=== PATIENT | male | born 1945 | race Caucasian/White ===

== ENCOUNTER 2023-06-29 11:00 | Outpatient (CLI) | payer MEDICARE, SELFPAY ==
--- OUTSIDE RECORDS SUMMARY | 2023-06-29 11:03 | XMS_ITS | Clinical Summary ---
Author Name Unknown Organization [facility] Address [place], [place] [address] Care Team Providers Care Curtain Feller Blindstitch Name Role Phone Yimi Pascual MD Primary Care Provider Allergies Active Allergy Reactions Criticality Noted Date Comments Clarithromycin 02/24/2004 Sulfa (Sulfonamide Antibiotics) Sulfa Drugs Medications Medication Sig Dispensed Refills Start Date End Date Status HYDROCHLOROTHIAZIDE 25 MG TAB take 1 tablet (25mg) by oral route once daily 30 1 yr 03/26/2005 Active HYTRIN 5 MG CAP take 1 capsule (5mg) by oral route once daily at bedtime 30 5 04/26/2005 Active VIAGRA 25 MG TAB take 1 tablet (25mg) by oral route once daily as needed approximately 1 hour before sexual activity 6 2 04/26/2005 Active ALBUTEROL 90 MCG/ACTUATION AEROSOL INHALER 2 puffs by mouth every 4 to 6 hours as needed for wheezing 1 1 06/15/2005 Active SINGULAIR 10 MG TAB take 1 tablet (10mg) by oral route once daily in the evening 30 3 06/15/2005 Active ATROVENT 18 MCG/ACTUATION AEROSOL INHALER inhale 2 puffs (36mcg) by inhalation route 4 times per day 1 3 06/21/2005 Active ALBUTEROL SULFATE 0.083 % SOLN FOR INHALATION 1 prefill via nebulizer every 4 to 6 hours as needed 25 1 06/25/2005 Active Active Problems Problem Noted Date Diagnosed Date Obstructive chronic bronchitis with exacerbation 06/25/2005 SCREENING FOR MALIGNANCY NOS 08/30/2000 Immunizations Name Administration Dates Next Due Influenza, IIV3 (Age >=3 years) 12/18/2004 Td, Preservative Free (age >= 7 Years) 5 Social History Tobacco Use Types Packs/Day Years Used Date Smoking Tobacco: Former Cigarettes Q uit: 04/20/2005 Alcohol Use Standard Drinks/Week Comments Not Asked 0 (1 standard drink = 0.6 oz pur e alcohol) Sex and Gender Information Value Date Recorded Sex Assigned at Not on file Gender Identity Not on file Sexual Orientation Not on file Obstetrics History Last Filed Vital Signs Vital Sign Reading Time Taken Comments Blood Pressure 154/90 06/25/2005 10:30 AM CDT Pulse 72 06/25/2005 10:30 AM CDT Temperature 35.6 ??C (96.1 ??F) 09/02/2011 1 2:00 AM CDT Respiratory Rate 36 06/15/2005 9:45 AM CDT Oxygen Saturation 93% 06/18/2005 10: 00 AM CDT Inhaled Oxygen Concentration - - Weight 120.5 kg (265 lb 9.6 oz) 012 12:00 AM CDT Height 177.8 cm (5' 10) 09/02/2011 12: 00 AM CDT Body Mass Index 38.11 09/02/2011 12:00 AM CDT Plan of Treatment Health Maintenance Due Date Last Done Comments Tdap 08/24/1955 Depression screening for age 12+ 1956 BMI (ht and wt on same day) for age 18+ 1962 Hepatitis C screening for age 18-79 1962 Zoster (shingles) series for age 50+ (1 of 2) 1994 Pneumococcal series for age 65+ (1 of 1 - PCV) 2009 Tetanus booster 07/13/2014 07/13/2004 COVID-19 vaccine series (3 - 2022-24 season) 2022 05/02/2020, 04/04/2020 Influenza for age 65+ 10/30/2023 12/18/2004 Care Teams Curtain Feller Blindstitch Relationship Specialty Start Date End Date Yimi Pascual MD [address] [place], [place] [id number] [place] [address] PCP - General 06/25/05
== END 2023-06-29 11:01 | disposition home or self-care (01) ==
LOC: NFLDREF 11:01
PROVIDERS: PCP Internal Medicine; Visit Provider Internal Medicine
DX: J44.9 Chronic obstructive pulmonary disease, unspecified (principal); Z13.228 Encounter for screening for other metabolic disorders
CPT/HCPCS: 80053

== ENCOUNTER 2023-08-01 16:16 | Emergency (ER) | payer OTHER, SELFPAY ==
[2023-08-01 16:21] VITALS: BP 130/66; PULSE 60; RESP 18; TEMP 36.6; O2SAT 91; BMI 32.5
--- NOTE | 2023-08-01 16:35 | ED_ITS ---
HPI - Fall General Chief Complaint: Fall/Minor Trauma Stated Complaint: Head injury Time Seen by Provider: 08/01/23 16:19 History of Present Illness HPI Narrative: This 77-year-old male comes in because of an injury that occurred prior to arrival. He was in the bathroom and his daughter had placed a new rug on the floor that did not have any anti slip backing. The rug slipped out causing him to fall backwards into the bathtub. He states that he hit his left posterior ribs and also hit his head. He did not have loss of consciousness. He is not complaining of headache except for some intermittent pains on the left side. He does have some discomfort in the left posterior ribs but knows external sign of injury. Related Data Home Medications ?Medication ?Instructions ?Recorded ?Confirmed B-complex with vitamin C 1 tab PO QDAY 06/14/23 08/01/23 atorvastatin 40 mg tablet 40 mg PO QDAY 06/14/23 08/01/23 cholecalciferol (vitamin D3) 50 50 mcg PO QDAY 06/14/23 08/01/23 mcg (2,000 unit) capsule omeprazole 40 mg capsule,delayed 40 mg PO QDAY 06/14/23 08/01/23 release oxybutynin chloride 5 mg 5 mg PO QDAY 06/14/23 08/01/23 tablet,extended release 24 hr oxycodone-acetaminophen 5 mg-325 1 tab PO Q8H PRN 06/14/23 08/01/23 mg tablet vitamin E (dl, acetate) 180 mg 180 mg PO QDAY 06/14/23 08/01/23 (400 unit) capsule Previous Rx's ?Medication ?Instructions ?Recorded clotrimazole 1 % topical cream 1 applic topical BID PRN Yeast in 06/14/23 (Antifungal (clotrimazole)) folds #45 grams ipratropium 0.5 mg-albuterol 3 mg 3 ml inhalation QID #90 mL 06/29/23 (2.5 mg base)/3 mL nebulization soln metoprolol succinate 25 mg 25 mg PO QDAY #30 tabs 06/29/23 tablet,extended release 24 hr gabapentin 300 mg capsule 300 mg PO BID #60 caps 07/06/23 tamsulosin 0.4 mg capsule 0.4 mg PO BID #180 caps 07/08/23 hydrocodone 5 mg-acetaminophen 325 1 tab PO Q4-6H PRN pain #20 tabs 08/01/23 mg tablet Allergies Allergy/AdvReac Type Severity Reaction Status Date / Time respiratory syncytial virus Allergy Severe Anaphylaxis Verified 08/01/23 15:58 vaccine, antigen [From Arexvy (PF)] vaccine adjuvant system, Allergy Severe Anaphylaxis Verified 08/01/23 15:58 AS01E liposomal [From Arexvy (PF)] Sulfa (Sulfonamide Allergy Intermediate Unknown Verified 08/01/23 15:58 Antibiotics) clarithromycin Allergy Unknown Unknown Verified 08/01/23 15:58 Review of Systems Status of ROS: Reports: 10 or more systems reviewed and unremarkable except as noted in History and below Narrative: Constitutional: No fevers, no weight gain or loss. Eyes: No discharge. No vision changes. HENT: No congestion, no sore throat, no ear pain. Cardiovascular: No palpitations. Respiratory: No shortness of breath, no wheezes, no cough. Gastrointestinal: No abdominal pain, no vomiting, no diarrhea. Genitourinary: No dysuria, no hematuria. Musculoskeletal: Normal range of motion. Skin: No rashes, no pruritis. Neurological: No dizziness, weakness, sensory change, speech change. Endo/Heme/Allergies: No bruising or bleeding. No polydipsia. Pysch: no suicidality, no anxiety, no insomnia. All other systems reviewed and are negative. [facility] Medical History (Updated 08/01/23 @ 17:30 by Rudy Jose MD) Fall ?W19.XXXA - Unspecified fall, initial encounter (ICD-10) (HFpEF) heart failure with preserved ejection fraction ?I50.30 - Unspecified diastolic (congestive) heart failure (ICD-10) Thrombocytopenia ?D69.6 - Thrombocytopenia, unspecified (ICD-10) CKD (chronic kidney disease) ?N18.9 - Chronic kidney disease, unspecified (ICD-10) Tobacco use ?Z72.0 - Tobacco use (ICD-10) Impingement syndrome of left shoulder ?M75.42 - Impingement syndrome of left shoulder (ICD-10) PAF (paroxysmal atrial fibrillation) ?I48.0 - Paroxysmal atrial fibrillation (ICD-10) COPD (chronic obstructive pulmonary disease) ?J44.9 - Chronic obstructive pulmonary disease, unspecified (ICD-10) History of vitamin D deficiency ?Z86.39 - Personal history of other endocrine, nutritional and metabolic disease (ICD-10) Low back pain with bilateral sciatica ?M54.42 - Lumbago with sciatica, left side (ICD-10) ?M54.41 - Lumbago with sciatica, right side (ICD-10) History of upper gastrointestinal bleeding ?Z87.19 - Personal history of other diseases of the digestive system (ICD-10) Stenosis of right carotid artery ?I65.21 - Occlusion and stenosis of right carotid artery (ICD-10) Cardiac pacemaker in situ ?Z95.0 - Presence of cardiac pacemaker (ICD-10) Hyperlipidemia ?E78.5 - Hyperlipidemia, unspecified (ICD-10) Hypertension ?I10 - Essential (primary) hypertension (ICD-10) GERD (gastroesophageal reflux disease) ?K21.9 - Gastro-esophageal reflux disease without esophagitis (ICD-10) BPH (benign prostatic hyperplasia) ?N40.0 - Benign prostatic hyperplasia without lower urinary tract symptoms (ICD-10) Coronary artery disease ?I25.10 - Atherosclerotic heart disease of che[place]-na coronary artery without angina pectoris (ICD-10) Surgical History (Updated 06/28/23 @ 13:37 by Diane Steen) History of coronary artery bypass graft (2020) ?Z95.1 - Presence of aortocoronary bypass graft (ICD-10) History of permanent cardiac pacemaker placement ?Z95.0 - Presence of cardiac pacemaker (ICD-10) Social History (Updated 06/14/23 @ 15:10 by Jennifer Byrd~[facility], [facility]) What is your current living situation?: I presently have a place to live Problems where you live: no known problems In the past 12 months, utilities in danger of being shut off: no In past 12 months, lack of transportation kept you from medical appts, meetings, work, or getting things needed for daily living: no In the past 12 mos, have been you worried that your food would run out before you had money to buy more?: never true In the past 12 mos, the food you bought just didn't last and you didn't have money to buy more?: never true Smoking Status: Never smoker How often do you have a drink containing alcohol: never AUDIT-C Alcohol total score: 0 Non-prescribed substance use: denies use How often does anyone, including family, friends and others, physically hurt you : never How often does anyone, including family, friends and others, insult or talk down to you: never How often does anyone, including family, friends and others, threaten you with harm: never How often does anyone, including family, friends and others, scream or curse at you: never Little interest or pleasure in doing things: not at all Feeling down, depressed, or hopeless: not at all Exam Narrative: Exam Narrative: Constitutional: Well-developed, well-nourished, no acute distress. HEENT: Normocephalic, atraumatic. Neck: Normal range of motion. Nontender. Supple. Heart: Regular. No murmurs. Normal rate. Intact distal pulses. Lungs: Clear to auscultation. No chest discomfort. No wheezes, rhonchi, or rales. Abdomen: Normal bowel sounds. Nontender. No rebound tenderness. Genitalia: Deferred. Back: No midline tenderness. Normal range of motion. Diffuse tenderness in the left lateral posterior ribs. No external sign of injury. Extremities: Normal range of motion. No injury. Skin: Intact. No rash. Warm. No erythema or pallor. Neurologic: No altered sensation. No weakness. Alert and oriented. Psychiatric: No suicidality. No anxiety or depression. No insomnia. Nursing notes and vitals signs are reviewed. Const: Vital Signs, click to edit/add: Vital Signs - 24 hr 08/01/23 16:21 Temperature 97.8 F Pulse Rate [Left P ulse Oximeter] 60 Respiratory Rate 18 Blood Pressure [Ri ght Upper Arm] 130/66 Pulse Oximetry 91 Oxygen Delivery Me thod Room Air Course Vital Signs Vital signs: Initial Vital Signs Temperature 97.8 F 08/01/23 16:21 Temperature Source Temporal Artery Scan 08/01/23 16:21 Pulse Rate 60 08/01/23 16:21 Pulse Rhythm Regular 08/01/23 16:21 Pulse Strength 3+ Normal 08/01/23 16:21 Respiratory Rate 18 08/01/23 16:21 Blood Pressure 130/66 08/01/23 16:21 Blood Pressure Mean 87 08/01/23 16:21 Blood Pressure Position Sitting 08/01/23 16:21 Pulse Oximetry 91 06/03/24 16:21 Oxygen Delivery Method Room Air 08/01/23 16:21 Vital Signs Temperature 97.8 F 08/01/23 16:21 Pulse Rate 60 08/01/23 16:21 Respiratory Rate 18 08/01/23 16:21 Blood Pressure 130/66 08/01/23 16:21 Pulse Oximetry 91 08/01/23 16:21 Oxygen Delivery Method Room Air 08/01/23 16:21 Temperature 97.8 F 08/01/23 16:21 Pulse Rate 60 08/01/23 16:21 Respiratory Rate 18 08/01/23 16:21 Blood Pressure 130/66 08/01/23 16:21 Pulse Oximetry 91 08/01/23 16:21 Oxygen Delivery Method Room Air 08/01/23 16:21 MDM - Fall MDM Narrative Medical decision making narrative: This 77-year-old male fell in the bathroom hitting his left posterior ribs. He also hit his head. He arrives with normal vital signs and complains only of some discomfort in the left lateral posterior ribs. CT scan of the head and left rib detail images are obtained and these returned with no acute findings. This was reassuring to the patient. He is okay to be discharged home and understands that this pain will resolve over time and often it is several weeks before it completely goes away. He did receive a prescription for some tablets of [place]. Imaging Data CT scan - head: Radiologist's impression: No acute intracranial abnormalities. Chest x-ray: Radiologist's impression: No acute, displaced fracture or malalignment. Stable remote, healed left rib fractures. Interval reduction in size in the left-sided pleural effusion, now trace. The remainder of the examination is unchanged compared to prior exam on June 29, 2023. Discharge Plan Discharge Clinical Impression: Contusion of rib on left side Patient Disposition: Home, Self-Care Condition: Stable Additional Instructions: Take medication as needed and directed. Activity as tolerated. Follow up with MD return if worsening. Prescriptions: New hydrocodone-acetaminophen 5-325 mg tablet 1 tab PO Q4-6H PRN (Reason: pain) Qty: 20 0RF No Action gabapentin 300 mg capsule 300 mg PO BID Qty: 60 4RF vitamin E (dl, acetate) 180 mg (400 unit) capsule 180 mg PO QDAY B-complex with vitamin C Tablet 1 tab PO QDAY oxybutynin chloride 5 mg tablet extended release 24hr 5 mg PO QDAY cholecalciferol (vitamin D3) 50 mcg (2,000 unit) capsule 50 mcg PO QDAY oxycodone-acetaminophen 5-325 mg tablet 1 tab PO Q8H PRN atorvastatin 40 mg tablet 40 mg PO QDAY omeprazole 40 mg capsule,delayed release(DR/EC) 40 mg PO QDAY clotrimazole [Antifungal (clotrimazole)] 1 % cream 1 applic topical BID PRN (Reason: Yeast in folds) Qty: 45 3RF metoprolol succinate 25 mg tablet extended release 24 hr 25 mg PO QDAY Qty: 30 4RF ipratropium-albuterol 0.5 mg-3 mg(2.5 mg base)/3 mL solution for nebulization 3 ml inhalation QID Qty: 90 0RF tamsulosin 0.4 mg capsule 0.4 mg PO BID Qty: 180 3RF Follow Up/Referrals: Damion Wilcox MD [Primary Care Provider] - Stand Alone Forms: [facility] Info Instructions
--- NOTE | 2023-08-01 16:35 | CRLHL7_ITS ---
For Patients: As a result of the Century Cures Act, medical imaging exams and procedure reports are released immediately into your electronic medical record. You may view this report before your referring provider. If you have questions, please contact your health care provider. INDICATION: Fall. Head injury. TECHNIQUE: CT of the head without contrast. Coronal and sagittal reformats are included. COMPARISON: None. FINDINGS: No acute intracranial hemorrhage. No mass effect or midline shift. No hydrocephalus or extra-axial collections. Small chronic lacunar infarct left basal ganglia. No acute osseous abnormalities. Mastoid air cells and paranasal sinuses are clear. Normal soft tissues. IMPRESSION: IMPRESSION: 1. No acute intracranial abnormalities. Please note that all CT scans at this facility use dose modulation, iterative reconstruction, and/or weight-based dosing when appropriate to reduce radiation dose to as low as reasonably achievable. Dictated by Lc Gao MD @ 08/01/2023 5:07:36 PM (Electronically Signed)
--- NOTE | 2023-08-01 16:35 | CRLHL7_ITS ---
For Patients: As a result of the Cures Act, medical imaging exams and procedure reports are released immediately into your electronic medical record. You may view this report before your referring provider. If you have questions, please contact your health care provider. Indication: Fall Technique: Frontal view of the chest and frontal and oblique views of the left ribs Comparison: Chest radiograph on June 29, 2023 Findings/impression : No acute, displaced fracture or malalignment. Stable remote, healed left rib fractures. Interval reduction in size in the left-sided pleural effusion, now trace. The remainder of the examination is unchanged compared to prior exam on June 29, 2023. Dictated by Jass rAdon MD @ 08/01/2023 5:22:15 PM (Electronically Signed)
--- OUTSIDE RECORDS SUMMARY | 2023-08-01 16:48 | XMS_ITS | Clinical Summary ---
Author Organization Formerly [facility] Address [address] [place] [address] Care Team Providers Care Nutrition Therapist Name Role Phone Fercho Serrato Primary Care Provider [phone] Source Comments You are receiving this document as you are listed as the primary care provider,follow-up provider, or the patient has been referred to you for consultation.This is in compliance with the Medicare and[facility] EHR Incentive Program,which states Providers who transition their patient to another setting of careor provider of care or refers their patient to another provider of care shouldprovide summary care record for each transition of care or referral. [employer] Allergies Active Allergy Reactions Criticality Noted Date Comments Rsvpref3 Vac Recomb Adjuvanted Anaphylaxis High 03/01/2023 Clarithromycin 02/24/2004 Sulfa Antibiotics HUT Comment: Sulfa Drugs Medications Medication Sig Dispensed Refills Start Date End Date Status B ComplexIndications :Elevated ferritin level,Folic acid deficiency (HRC),Vitamin B12 deficiency (HRC),Anemia, unspecified type Take 1 Capsule by mouth daily. 90 Capsule 3 06/26/2021 Active albuterol 2.5 mg/3 mL, 0.083%, (PROVENTIL) nebulizer solutionIndication s:Reactive airway disease with acute exacerbation, unspecified asthma severity, unspecified whether persistent (HRC) 1 Each (2.5 mg) by Nebulization route every 6 hours as needed for Wheezing. 180 mL 1 03/09/2022 Active azelastine (ASTELIN) 0.1 % nasal solutionIndication s:Allergic rhinitis, unspecified seasonality, unspecified trigger Place 1 Recluse into both nostrils two times a day. 30 mL 11 06/29/2022 Active cholecalciferol (D3 SUPER STRENGTH) 50 MCG (2000 UT) capsuleIndications :Vitamin D deficiency (HRC) Take 2 Capsules (4,000 Units) by mouth daily. 180 Capsule 3 06/30/2022 Active olopatadine (PATADAY) 0.2 % eye drop solution Place 1 Drop into both eyes daily. 2.5 mL 3 07/02/2022 Active atorvastatin (LIPITOR) 40 MG tabletIndications: Mild carotid artery disease (HRC),S/P coronary artery bypass graft x 5 TAKE 1 TABLET (40 MG) BY MOUTH DAILY. 90 Tablet 3 09/10/2022 Active gabapentin (NEURONTIN) 300 MG capsuleIndications :Idiopathic peripheral neuropathy Take 1 Capsule (300 mg) by mouth two times a day. 180 Capsule 1 10/15/2022 4 Active oxybutynin (DITROPAN XL) 5 MG 24 hour release tabletIndications: OAB (overactive bladder) Take 1 Tablet (5 mg) by mouth daily. 90 Tablet 1 10/15/2022 Active omeprazole (PRILOSEC) 40 MG capsuleIndications :Gastroesophageal reflux disease with esophagitis without hemorrhage Take 1 Capsule (40 mg) by mouth daily. 90 Capsule 1 10/15/2022 4 Active tiotropium-olodate rol (STIOLTO RESPIMAT) 2.5-2.5 MCG/ACT inhalerIndications :Moderate persistent reactive airway disease with acute exacerbation ([facility]) Inhale 2 Puffs daily. 2 Each 3 10/15/2022 4 Active dutasteride (AVODART) 0.5 MG capsuleIndications :Benign prostatic hyperplasia with weak urinary stream TAKE 1 CAPSULE (0.5 MG) BY MOUTH DAILY. 90 Capsule 3 12/27/2022 Active nitroglycerin (NITROSTAT) 0.4 MG sublingual tabletIndications: Chest discomfort,S/P coronary artery bypass graft x [address] Place 1 Tablet (0.4 mg) under tongue every 5 minutes as needed for Chest Pain. 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 180 Capsule 1 01/13/2023 Active metoprolol succinate (TOPROL XL) 25 MG 24 hour release tabletIndications: PAF (paroxysmal atrial fibrillation) (HRC),Essential hypertension (HRC) Take 1 Tablet (25 mg) by mouth daily. 90 Tablet 3 03/01/2023 Active clotrimazole (LOTRIMIN) 1 % creamIndications:C andidal intertrigo Apply 1 g topically two times daily as needed (yeast groinfolds). 60 g 3 03/01/2023 Active oxyCODONE-acetamin ophen (PERCOCET) 5-325 MG tabletIndications: Chronic bilateral low back pain with left-sided sciatica (HRC),Right-sided low back pain with right-sided sciatica, unspecified chronicity (HRC),History of rib fracture TAKE 1 TABLET BY MOUTH EVERY 24 HOURS NEEDED FOR PAIN. 30 Tablet 04/29/2023 Active E-400 180 MG (400 UNIT) CAPSIndications:No cturnal leg cramps TAKE 1 CAPSULE (400 UNITS) BY MOUTH DAILY. 90 Capsule 3 05/13/2023 Active Active Problems Problem Noted Date Diagnosed Date History of chronic respiratory failure 3 History of RSV infection 01/13/2023 Unstable angina 01/08/2023 care home (current) use of systemic steroids 12/2022 care home current use of inhaled steroid 023 Folic acid deficiency 01/08/2023 Paresthesia 07/17/2022 Rectal bleeding 07/17/2022 Alternating constipation and diarrhea 07/17/2022 Acute on chronic combined sy stolic and diastolic CHF (congestive heart failure) 07/04/2022 Supplemental oxygen dependent 06/20/2022 Chronic bilateral low back pain with left-sided sciatica 03/10/2022 Right-sided low back pain with right-sided sciat ica 03/10/2022 Obstructive lung disease 03/10/2022 Carotid artery stenosis, unilateral, right 03/10 Stage 3a chronic kidney disease 03/09/2022 Reactive airway disease 03/09/2022 History of COVID-19 03/09/2022 Weakness of right leg 03/09/2022 Cutaneous candidiasis 03/09/2022 Dyspnea 03/09/2022 Leg cramps 03/09/2022 Controlled substance agreement signed 03/09/2022 Overview: Signed 03/01/2023 Signed 03/09/2022 Acute on chronic respiratory failure with hypoxi a 12/09/2021 Pneumonia due to COVID-19 virus 12/07/2021 Temporal pain 06/18/2021 Dyslipidemia 12/21/2020 Gastroesophageal reflux disease 12/21/2020 Vitamin D deficiency 12/21/2020 Contusion of right hip 12/21/2020 Shoulder impingement syndrome, left 12/21/2020 Status cardiac pacemaker 08/09/2020 Overview: Tachy-benito Syndrome PAF (paroxysmal atrial fibrillation) 08/09/2020 Overview: Not anticoagulated due to high risk for bleeding, hx of UGI bleed Carotid artery disease 08/09/2020 Overview: 11/27/19 Carotid US 16 to 49% stenosis of the right internal carotid artery, 16 to 49% stenosis of the left internal carotid artery Family history of CABG 08/09/2020 Overview: 12/18/19 SADLER-LAD,??SVG to M2 - M3,??SVG to proximal PDa (RCA),??SVG to D2) Benign prostatic hyperplasia with weak urinary s tream 08/09/2020 Obesity, Class I, BMI 30-34.9 08/09/2020 OAB (overactive bladder) 08/09/2020 Anemia 08/09/2020 Thrombocytopenia 08/09/2020 Essential hypertension 08/09/2020 S/P coronary artery bypass graft x 5 08/09/2020 Class 1 obesity due to exces s calories with serious comorbidity and body mass index (BMI) of 34.0 to 34.9 in adult 11/29/2019 Obstructive chronic bronchitis with exacerbation 06/25/2005 Resolved Problems Problem Noted Date Diagnosed Date Resolved Date Hypoxia 12/07/2021 12/17/2021 Right upper quadrant abdominal pain 06/18/2021 01/13/2023 Chronic heart failure with p reserved ejection fraction 08/09/2020 10/14/2022 Hypoproteinemia 08/09/2020 06/18/2021 Chest heaviness 08/09/2020 01/13/2023 Encounter for screening for malignant neoplasm 08/30/2000 12/17/2021 Overview: SCREENING FOR MALIGNANCY NOS Encounters Date Type Department Care Team Description 07/01/2023 9:40 AM CDT Office Visit [facility] [address] [place] [phone] Darryl Lizama, DPM Atherosclerosis of artery of both lower extremities (HRC) (Primary Dx); Onychomycosis 06/06/2023 9:20 AM CDT [facility] [address] [facility] [place], [place] [id number] Second degree Mobitz II AV block (Primary Dx); Status cardiac pacemaker; PAF (paroxysmal atrial fibrillation) (HRC) 05/24/2023 Telephone [facility] [address] [facility] [place] [phone] Fercho Serrato, DO QUESTIONS, GENERAL (FORM NEEDED) 05/10/2023 Refill [facility] Internal Medicine [facility] [address] [place] [phone] Fercho Serrato, Refill (E-400 180 MG (400 UNIT) CAPS [Pharmacy Med Name: E-400 400UNIT]) from Last 3 Months Immunizations Name Administration Dates Next Due Flu Vac (3+ yrs) 11/28/2005,12/18/2004 Flu Vac Preserv Free (3+yrs) 12/25/2010 Influenza (Flucelvax) 12/03/2020 Influenza IIV4 (Quadrivalent ) 0.5mL (12254) 12/17/2019,04/05/2018 Influenza IIV4 (Quadrivalent ) Fluad, 65+ Yrs 12/06/2022,12/04/2021 Moderna 12+ 12/06/2022 Moderna Bivalent 12+ 12/04/2021 Moderna Monovalent 12+ 07/06/2021,2020,05/02/2020,2020 Moderna Monovalent 6-11 12/06/2022 PCV13 (Prevnar) 04/05/2018 PPSV23 (Pneumovax) 10/13/2013,11/28/2005 RSV Arexvy 12/07/2022 Td (7+ yrs) 07/13/2004 Td, Preservative Free 07/13/2004 Tdap 09/23/2014 Zoster RZV (Shingrix) 08/20/2022,01/30/2021,07/2020 Social History Tobacco Use Types Packs/Day Years Used Date Smoking Tobacco: Former Cigarettes Passive Smoke Exposure: Past Smokeless Tobacco: Never Alcohol Use Standard Drinks/Week Comments Not Currently 0 (1 standard drink = 0.6 oz pur e alcohol) Sex and Gender Information Value Date Recorded Sex Assigned at Not on file Gender Identity Not on file Sexual Orientation Not on file Last Filed Vital Signs Vital Sign Reading Time Taken Comments Blood Pressure 120/56 03/01/2023 10:07 AM STATISTICS INTERN Pulse 71 07/01/2023 9:25 AM CDT Temperature 37.3 ??C (99.1 ??F) 03/01/2023 9 :29 AM STATISTICS INTERN Respiratory Rate 21 12/13/2022 7:36 PM CDT Oxygen Saturation 92% 07/01/2023 9:2 5 AM CDT Inhaled Oxygen Concentration - - Weight 102.1 kg (225 lb) 07/01/2023 9:2 5 AM CDT Height 178 cm (5' 10.08) 12/30/2022 8: 44 AM CDT With Shoes, Pt decline to remove Body Mass Index 32.21 12/30/2022 8:44 AM CDT Plan of Treatment Upcoming Encounters Date Type Department Care Team (Late st Contact Info) Description 08/31/2023 10:[address] [facility] [address] [place] [phone] Health Maintenance Due Date Last Done Comments Medicare Annual Wellness Visit 02/28/2023 12/30/2022, 06/08/2021 (Completed) COVID-19 Vaccine ( season) 2023 12/06/2022, 12/06/2022, 12/04/2021, Additional history exists DTaP/Tdap/Td (2 - Tdap) 09/23/2024 09/24/19 15, 07/13/2004, 07/13/2004 Pneumococcal 65+ Yrs Completed 04/05/2018, 10/13/2013, 11/28/2005 Hep C Screening (Preventive Services) Completed 09/11/2020 Zoster/Shingles Completed 08/20/2022, 04/2020, 12/03/2020 Influenza Completed 12/06/2022, 08/2021, 12/03/2020, Additional history exists Cholesterol Discontinued 12/30/2022, 02/28, 06/08/2021, Additional history exists Lung Cancer Screening Discontinued 04/11/2023, 023 HepA Aged Out No longer eligi ble based on patient's age to complete this topic HepB Aged Out No longer eligi ble based on patient's age to complete this topic Hib Aged Out No longer eligi ble based on patient's age to complete this topic IPV (Polio) Aged Out No longer eligi ble based on patient's age to complete this topic MCV4 Aged Out No longer eligi ble based on patient's age to complete this topic Medical Devices Implanted Type Area Nuclear Test Technician Device Identifier Shelf Expiration Date Model / Serial / Lot Pacemaker Cardiac Bypass X5 Procedures Procedure Name Priority Date/Time Associated Diagnosis Comments PACEMAKER EVALUATION Routine 06/06/2023 5:11 AM CDT Second degree Mobitz II AV block Status cardiac pacemaker PAF (paroxysmal atrial fibrillation) (HRC) CT CHEST WO IV CONT LUNG SCREENING Routine 04/11/2023 1:42 PM STATISTICS INTERN Tobacco use (HRC) Nicotine dependence with nicotine-induced disorder, unspecified nicotine product type (HRC) Smoking greater than 40 pack years (HRC) LIPID PANEL & DIRECT LDL (IF NEEDED) Routine 12/30/2022 8:08 AM CDT Dyslipidemia (HRC) HEPATITIS C ANTIBODY, WITH REFLEX Waiting 09/11/2020 12:26 PM CDT Need for hepatitis C screening test from Last 3 Months or Most Recently Relevant to Health Maintenance Results * Pacemaker Evaluation (06/06/2023 5:11 AM CDT) 06/06/2023 5:11 AM CDT Narrative PACEART - 06/06/2023 5:11 AM CDT Normal dual chamber pacemaker function. This is a Latitude transmission. The device was interrogated to assess data and settings. No atrial high rate episodes noted. Two VT epiosdes detected with durations of 2 and 4 seconds (6 and 12 beats) per EGMs with rates of 187 and 194bpm. RV paced 98%. Battery voltage and lead impedances WNL. RTC in 3 months. Please contact if any questions. dw Christiano Perkins MD PN ELECTROPHYSIOLOGY ORDERABLE PACEART * CT Chest WO IV Cont Lung Screening (04/11/2023 1:42 PM STATISTICS INTERN) Anatomical Region Laterality Modality Chest, Lung Computed Tomogra phy 04/11/2023 1:25 PM STATISTICS INTERN Impressions 04/11/2023 2:11 PM STATISTICS INTERN COMPARISON: 04/09/2022 TECHNIQUE: Images through the chest were obtained without contrast using a low dose lung screening technique. FINDINGS: CHEST WALL AND LOWER NECK: Left chest wall cardiac pacemaker, leads terminating in the right atrium and ventricle. HEART AND VASCULATURE: Normal heart size. No pericardial effusion. No thoracic aortic aneurysm. Moderate coronary artery calcifications. MEDIASTINUM: Unremarkable esophagus. Scattered prominent mediastinal lymph nodes, similar to prior. LUNGS AND PLEURAL SPACE: Patent central airways. No focal airspace consolidation. Mild bronchial wall thickening. Small left pleural effusion. No pneumothorax. Mild diffuse subpleural reticular opacities. 3 mm pulmonary nodule within the right upper lobe (series 3 image 65), stable. 2 mm nodule within the right upper lobe (series 3 image 46), not clearly seen on prior exam. 2 mm nodule within the left upper lobe (series 3 image 49), stable. UPPER ABDOMEN: Hepatic steatosis Focal cortical thickening of the left posterolateral seventh rib (series 2 image 39), likely present on prior exam but more conspicuous on present study. IMPRESSION: 1. Scattered tiny pulmonary nodules. Recommend continued surveillance. 2. Small left pleural effusion 3. Focal cortical thickening of the posterolateral seventh rib, likely chronic fracture. In retrospect, this was likely present on prior exam but more conspicuous on present exam. 4. Hepatic steatosis ACR Lung-RADS Category ACR Lung-RADS Category 2: Benign. Continue annual screening with low-dose chest CT in 12 months (CT Chest WO IV Cont Lung Screening). ACR Lung-RADS Category S: Significant or potentially clinically significant findings (non lung cancer). Clinical follow-up is recommended Reyna Wharton MD RAD CT * (ABNORMAL) Lipid Panel & Direct LDL (if Needed) (12/30/2022 8:08 AM CDT) Cholesterol 126 0 - 199 mg/dL 12/30/2022 8:40 AM [facility] Triglyceride 115 <=149 mg/dL 12/30/2022 8:40 AM [facility] HDL Cholesterol 32(L) >=40 mg/dL 3 8:40 AM [facility] LDL, Calculated 71 <130 mg/dL 3 8:40 AM [facility] Non HDL Chol, Calculated 94 <=159 mg/dL 12/30/2022 8:40 AM [facility] Cholesterol/HDL Ratio 3.9 <=5.0 12/30/2022 8:40 AM [facility] Hours Fasting 10.0 8 - 12 Hours 12/30/2022 8:40 AM [facility] Blood Venipuncture / Unknown 12/30/2022 8:08 AM CDT 12/30/2022 8:13 AM CDT Fercho Serrato DO LAB_1 [facility] [address] [facility] [address] [place] [address] * Hepatitis C Antibody, with Reflex (09/11/2020 12:26 PM CDT) Hepatitis C Antibody Negative (Non Reactive) Negative (Non Reactive) 09/11/2020 4:26 PM CDT [facility] Comment:Antibodies to HCV no t detected. Does not exclude the possiblity of exposure to HCV. Blood Venipuncture / Unknown 09/11/2020 12:26 PM CDT 09/11/2020 12:36 PM CDT Fercho Serrato DO LAB_1 [facility] [address] [place] [address], [facility] from Last 3 Months or Most Recently Relevant to Health Maintenance Advance Directives * Full Code (Latest Code Status on File) Date Activated Date Inactivated Comments 10/06/2022 1:30 PM 10/06/2022 4:28 PM * Do Not Attempt Resuscitation if Pulseless and Apneic, Do Not Intubate for Respiratory Deterioration Date Activated Date Inactivated Comments 07/04/2022 11:26 AM 07/06/2022 3:22 PM Question Answer Comments See below for Life Sustainin g Treatment Orders IF pulse and breathing are present: See below Intubation for respiratory deterioration? No BiPAP for respiratory deterioration? Unaddressed /Yes Vasopressors for hypotension? Unaddressed/Yes Cardioversion for unstable rhythm? Unaddressed/Y es * Do Not Attempt Resuscitation if Pulseless and Apneic, Do Not Intubate for Respiratory Deterioration Date Activated Date Inactivated Comments 12/07/2021 1:36 AM 12/10/2021 3:56 PM Question Answer Comments See below for Life Sustainin g Treatment Orders IF pulse and breathing are present: See below Intubation for respiratory deterioration? No BiPAP for respiratory deterioration? Unaddressed /Yes Vasopressors for hypotension? Unaddressed/Yes Cardioversion for unstable rhythm? Unaddressed/Y es * Full Code Date Activated Date Inactivated Comments 12/07/2021 1:17 AM 12/07/2021 1:36 AM * Full Code Date Activated Date Inactivated Comments 08/26/2021 1:46 PM 08/26/2021 5:07 PM Care Teams Nutrition Therapist Relationship Specialty Start Date End Date Fercho Serrato DO [address] [place] [address] PCP - General Internal Medicine 08/01/20
--- OUTSIDE RECORDS SUMMARY | 2023-08-01 16:48 | XMS_ITS | Clinical Summary ---
Author Organization [employer] [facility] Address [place], [place] [address] Care Team Providers Care Telecommunication Tower Technician Name Role Phone Yimi Pascual MD Primary [...] Tetanus booster 07/13/2014 07/13/2004 COVID-19 vaccine series (2022-24 season) 2022 05/02/2020, 04/04/2020 Influenza for age 65+ 10/30/2023 12/18/2004 Care Teams Telecommunication Tower Technician Relationship Specialty Start Date End Date Yimi Pascual MD [address] [place] [address] [place] [id number] PCP - General 06/25/05
--- OUTSIDE RECORDS SUMMARY | 2023-08-01 16:48 | XMS_ITS | Encounter Summary ---
Author Organization [employer] Address [address] [place] [address] Care Team Providers Care Vice President For Instruction Name Role Phone Fercho Serrato DO Primary Care Provider + [phone] Reason for Visit * Reason Comments QUESTIONS, GENERAL FORM NEEDED Encounter Details Date Type Department Care Team (Late st Contact Info) Description 05/24/2023 Telephone [facility] Internal Medicine Clinic [address] [place] [phone] Fercho Serrato DO [address] [place] [address] QUESTIONS, GENERAL (FORM NEEDED) Social History Tobacco Use Types Packs/Day Years Used Date Smoking Tobacco: Former Cigarettes Passive Smoke Exposure: Past Smokeless Tobacco: Never Alcohol Use Standard Drinks/Week Comments Not Currently 0 (1 standard drink = 0.6 oz pur e alcohol) Sex and Gender Information Value Date Recorded Sex Assigned at Not on file Gender Identity Not on file Sexual Orientation Not on file documented as of this encounter Nursing Notes * Rosalinda Dasilva LPN - 05/24/2023 4:53 PM CDT Called patient. Per patient, mailed form from last year for animal assistance form to patient and to: Rasheed Conde, [address] [place] [address]. Rosalinda Alcantara LPN, 4:54 PM 05/24/2023 * Sanjana Muller - 05/24/2023 11:39 AM CDT Forms & Letters What form/letter are you requesting? Emotional Support Animal COPY OF ASH FORM SENT TO [facility] FOR DOG, CALL PT BACK [phone] documented in this encounter Plan of Treatment Upcoming Encounters Date Type Department Care Team (Late st Contact Info) Description 08/31/2023 10:00 AM CDT Appointment [facility] Electrophysiology Clinic [address] [place] [phone] documented as of this encounter Visit Diagnoses Not on filedocumented in this encounter Care Teams Vice President For Instruction Relationship Specialty Start Date End Date Fercho Serrato DO [address] [place] [address] PCP - General Internal Medicine 08/01/20 documented as of this encounter
--- OUTSIDE RECORDS SUMMARY | 2023-08-01 16:48 | XMS_ITS | Encounter Summary ---
Author Organization [facility] Address [address], [place] [address] Care Team Providers Care Mine Shifter Name Role Phone Fercho Guido DO Primary Care Provider + [phone] Reason for Visit * Reason Comments Refill E-400 180 MG (400 UN IT) CAPS [Pharmacy Med Name: E-400 400UNIT] Encounter Details Date Type Department Care Team (Late st Contact Info) Description 05/10/2023 Refill [facility] Internal Medicine Clinic [address] [place] [phone] Fercho Guido DO [address] [place] [address] Refill (E-400 180 MG (400 UNIT) CAPS [Pharmacy Med Name: E-400 400UNIT]) Social History Tobacco Use Types Packs/Day Years [...] as of this encounter Nursing Notes * Javad Garcia RN - 05/13/2023 8:41 PM CDT Renewed medication per medication refill protocol. Requested Prescriptions Pending Prescriptions Disp Refills Vitamin E (E-400) 180 MG (400 UNIT) CAPS [Pharmacy Med Name: E-400 400UNIT] 90 Capsule 3 Sig: TAKE 1 CAPSULE (400 UNITS) BY MOUTH DAILY. * Jazmin Bueno Xrwcomm - 05/10/2023 9:18 AM CDT E-400 180 MG (400 UNIT) CAPS [Pharmacy Med Name: E-400 400UNIT] Medication started: 03/23/2022 Last ordered by FERCHO GUIDO (224 days ago) QTY: 90, Refills: 1, Sig: take 1 capsule (400 units) by mouth daily. (unchanged) -> Refill x 12 months (until due for an office visit) -> Calculate the quantity and number of refills manually. Last qualifying visit: 03/01/2023 (with FERCHO GUIDO) Next scheduled visit: 05/31/2023 (with FERCHO GUIDO) [facility] Embedded Refills, Reference: [id number], 05/10/2023 9:18:12 AM CDT, Domenic: TINO [facility] - Primary Care [[id number]] ([id number]) documented in this encounter Plan of Treatment Upcoming Encounters Date Type Department Care Team (Late st Contact Info) Description 08/31/2023 10:00 AM CDT Appointment [facility] Electrophysiology Clinic [address] [place] [phone] documented as of this encounter Visit Diagnoses Diagnosis Nocturnal leg cramps Sleep related leg cramps documented in this encounter Care Teams Mine Shifter Relationship Specialty Start Date End Date Fercho Guido DO [address] [place] [address] PCP - General Internal Medicine 08/01/20 documented as of this encounter
--- OUTSIDE RECORDS SUMMARY | 2023-08-01 16:48 | XMS_ITS | Encounter Summary ---
Author Organization [facility] Address [address] [address] Care Team Providers Care Horse Trader Name Role Phone Fercho Serrato Primary Care Provider + Encounter Details Date Type Department Care Team (Late Contact Info) Description 12/13/2019 Lab Requisition [facility] [address] [place], [place] [id number] Clinician, Not Found, [place] [address] Encounter for surgical aftercare following surgery on the circulatory system Social History Tobacco Use Types Packs/Day Years Used Date Smoking Tobacco: Former Cigarettes Q uit: 04/20/2005 Alcohol Use Standard Drinks/Week Comments Not Asked 0 (1 standard drink = 0.6 oz pur e alcohol) Sex and Gender Information Value Date Recorded Sex Assigned at Not on file Gender Identity Not on file Sexual Orientation Not on file documented as of this encounter Plan of Treatment Upcoming Encounters Date Type Department Care Team (Late Contact Info) Description 08/31/2023 10:00 AM CDT Appointment [facility] [address] [place] [address] documented as of this encounter Procedures Procedure Name Priority Date/Time Associated Diagnosis Comments CBC AND DIFFERENTIAL PANEL Routine 12/14/2019 7:10 AM CDT Encounter for surgical aftercare following surgery on the circulatory system COMPLETE BLOOD COUNT-W/DIFF Routine 12/14/2019 7:10 AM CDT Encounter for surgical aftercare following surgery on the circulatory system COMPREHENSIVE METABOLIC PANEL Routine 12/14/2019 7:10 AM CDT Encounter for surgical aftercare following surgery on the circulatory system documented in this encounter Results * (ABNORMAL) Complete Blood Count-W/Diff (12/14/2019 7:10 AM CDT) WBC 8.3 3.5 - 10.5 x10(9)/L 12/14/2019 12:51 PM CDT [facility] RBC 2.85(L) 4.32 - 5.72 x10(12)/L 12/14/2019 12:51 PM CDT [facility] Hemoglobin 9.3(L) 13.5 - 17.5 g/dL 12/14/2019 12:51 PM CDT [facility] HCT 30.3(L) 38.8 - 50.0 % 12/14/2019 12:51 PM CDT [facility] MCV 106.3(H) 80.0 - 100.0 fL 12/14/2019 12:51 PM CDT [facility] MCH 32.6 27.6 - 33.3 pg 12/14/2019 12:51 PM CDT [facility] MCHC 30.7(L) 31.5 - 35.2 g/dL 12/14/2019 12:51 PM CDT [facility] RDW 14.5 11.9 - 15.5 % 12/14/2019 12:51 PM CDT [facility] Platelets 358 150 - 450 x10(9)/L 12/14/2019 12:51 PM CDT [facility] Automated NRBC 0 <=0 /100 WBC 12/14/2019 12:51 PM CDT [facility] Neutrophil Absolute 6.1 1.7 - 7.0 10(9)/L 12/14/2019 12:51 PM CDT [facility] Lymphocyte Absolute 1.3 1.0 - 4.8 10(9)/L 12/14/2019 12:51 PM CDT [facility] Monocyte Absolute 0.7 0.2 - 0.9 10(9)/L 12/14/2019 12:51 PM CDT [facility] Eosinophil Absolute 0.1 0.0 - 0.5 10(9)/L 12/14/2019 12:51 PM CDT [facility] Basophil Absolute 0.1 0.0 - 0.3 10(9)/L 12/14/2019 12:51 PM CDT [facility] Immature Granulocyte % 0.5 0.0 - 0.5 % 12/14/2019 12:51 PM CDT [facility] Blood Venipuncture / Unknown 12/14/2019 7:10 AM CDT 12/14/2019 12:04 PM CDT Not Found Clinician LAB_1 [facility] [address] [place] [address], [facility] * (ABNORMAL) Comp Metabolic Panel (12/14/2019 7:10 AM CDT) Sodium 136 136 - 145 mmol/L 12/14/2019 1:15 PM CDT [facility] Potassium 4.2 3.5 - 5.1 mmol/L 12/14/2019 1:15 PM CDT [facility] Chloride 101 98 - 109 mmol/L 12/14/2019 1:15 PM CDT [facility] CO2 27 20 - 29 mmol/L 12/14/2019 1:15 PM CDT [facility] Anion Gap 8 7 - 16 mmol/L 12/14/2019 1:15 PM CDT [facility] Calcium 8.8 8.4 - 10.4 mg/dL 12/14/2019 1:15 PM CDT [facility] BUN 16 7 - 26 mg/dL 12/14/2019 1:15 PM CDT [facility] Creatinine 1.05 0.73 - 1.18 mg/dL 12/14/2019 1:15 PM CDT [facility] GFR, Estimated >60 >60 mL/min/1.7 3m2 12/14/2019 1:15 PM CDT [facility] Alkaline Phosphatase 123 40 - 150 U/L 12/14/2019 1:15 PM CDT [facility] AST (SGOT) 23 10 - 40 U/L 12/14/2019 1:15 PM CDT [facility] ALT (SGPT) 29 0 - 55 U/L 12/14/2019 1:15 PM CDT [facility] Bilirubin, Total 0.5 0.2 - 1.2 mg/dL 12/14/2019 1:15 PM CDT [facility] Protein, Total 6.1(L) 6.4 - 8.3 g/dL 12/14/2019 1:15 PM CDT [facility] Albumin 3.1(L) 3.5 - 5.0 g/dL 12/14/2019 1:15 PM CDT [facility] Glucose 95 70 - 100 mg/dL 12/14/2019 1:15 PM CDT [facility] Comment:The given reference range is for the fasting state. Non-fasting reference range for glucose is 70 - 180 mg/dL. Hours Fasting Unknown 12/14/2019 1:15 PM CDT [facility] Blood Venipuncture / Unknown 12/14/2019 7:10 AM CDT 12/14/2019 12:02 PM CDT Not Found Clinician LAB_1 Performing Organization Address City/State/[facility] Co de Phone Number [facility] [address] documented in this encounter Visit Diagnoses Diagnosis Encounter for surgical aftercare following surgery on the circulatory system documented in this encounter Additional Health Concerns Infection Onset Date Last Indicated Resolved Time R/O COVID19 12/06/2021 12/06/2021 12/06/2021 11:3 9 PM CDT COVID19 12/06/2021 12/06/2021 12/17/2021 3:17 AM CDT R/O COVID19 07/04/2022 07/04/2022 07/04/2022 10:3 6 AM CDT R/O COVID19 12/13/2022 12/13/2022 12/13/2022 7:02 PM CDT documented as of this encounter Care Teams Horse Trader Relationship Specialty Start Date End Date Fercho Serrato DO [address] [place] [address] PCP - General Internal Medicine 08/01/20 documented as of this encounter
--- OUTSIDE RECORDS SUMMARY | 2023-08-01 16:48 | XMS_ITS | Encounter Summary ---
Author Organization [facility] Address [address], [place] [address] Care Team Providers Care It Coordinator Name Role Phone Fercho Guido DO Primary Care Provider [phone] Reason for Visit * Reason Comments Refill oxyCODONE-acetaminop hen (PERCOCET) 5-325 MG tablet [Pharmacy Med Name: OXYCOD/APAP 5-325MG] Encounter Details Date Type Department Care Team (Late st Contact Info) Description 04/28/2023 Refill [facility] [address] [place] [address] Fercho Guido DO [address] [place], [place] [phone] Refill (oxyCODONE-acetaminophen (PERCOCET) 5-325 MG tablet [Pharmacy Med Name: OXYCOD/APAP 5-325MG]) Social History Tobacco Use Types Packs/Day Years [...] as of this encounter Nursing Notes * Interface, Out Surescripts Prov Query - 04/28/2023 2:17 PM CST oxyCODONE-acetaminophen (PERCOCET) 5-325 MG tablet [Pharmacy Med Name: OXYCOD/APAP 5-325MG] Medication started: 07/16/2021 Last ordered by FERCHO GUIDO: 03/01/2023 (58 days ago) QTY: 30, Refills: 0, Sig: take 1 tabletby mouth every 24 hours as needed for pain. (unchanged) -> Medication cannot be delegated. Last qualifying visit: 03/01/2023 (with FERCHO GUIDO) Next scheduled visit: 05/31/2023 (with FERCHO GUIDO) [employer] Embedded Refills, Reference: [id number], 04/28/2023 2:17:00 PM [facility]CO & PRESIDENT, Pool: TINO Refill Centralized Services - Primary Care [[id number]] ([id number]) & PRESIDENT * Interface, Out Force-A Prov Query - 04/28/2023 2:17 PM CST No Careplan note found by [email or web address]. 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
--- OUTSIDE RECORDS SUMMARY | 2023-08-01 16:48 | XMS_ITS | Encounter Summary ---
Author Organization [facility] Address [address] [place] [address] Care Team Providers Care Injection Press Operator Name Role Phone Fercho Serrato Primary Care Provider [phone] Reason for Visit * Reason Comments Follow-up Nail trim Encounter Details Date Type Department Care Team (Latest Contact Info) Description 07/01/2023 9:40 AM CDT Office Visit [facility] [address] [place] [phone] Darryl Lizama, DPJose [address] [place], [place] [phone] Atherosclerosis of artery of both lower extremities (HRC) (Primary Dx); Onychomycosis Social History Tobacco Use Types Packs/Day Years [...] on file documented as of this encounter Last Filed Vital Signs Vital Sign Reading Time Taken Comments Blood Pressure - - Pulse 71 07/01/2023 9:25 AM CDT Temperature - - Respiratory Rate - - Oxygen Saturation 92% 07/01/2023 9:25 AM CDT Inhaled Oxygen Concentration - - Weight 102.1 kg (225 lb) 07/01/2023 9:25 AM CDT Height - - Body Mass Index 32.21 12/30/2022 8:44 AM CDT documented in this encounter Progress Notes * Darryl Lizama DPM - 07/01/2023 9:40 AM CDT @PMHR@ Nursing Notes: Martha Shah, RN 07/01/23 0926 Signed Type of service: In Person Visit Chief Complaint Patient presents with Follow-up Nail trim Others present during visit: self Vitals: Pulse 71 Wt 225 lb (102.1 kg) SpO2 92% BMI 32.21 kg/m?? Tobacco History: Social History Tobacco Use Smoking Status Former Current packs/day: 1.00 Types: Cigarettes Passive exposure: Past Smokeless Tobacco Never Allergies: Allergies Allergen Reactions Arexvy [Rsvpref3 Vac Recomb Adjuvanted] Anaphylaxis Clarithromycin Sulfa Antibiotics HUT Comment: Sulfa Drugs Additional Information: None Patient presents for routine foot care. Nails are thick, yellow, brittle, and mycotic 1-5 bilateral. PT and DP pulses are nonpalpable. Skin is thin and shinny, feet are cool. Assessment:PVD onychomycosis. Plan: I debrided all the nails. Plan: I debrided all the nails, with both the nail nipper and by use of power tool grinder operator. Nails were fully but not to the matrix debrided. All subungual debris removed. Verbal instructions reviewed in detail with patient at office visit. Darryl Lizama DPM 07/01/2023, 9:37 AM documented in this encounter Nursing Notes * Martha Shah RN - 07/01/2023 9:40 AM CDT Type of service: In Person Visit Chief Complaint Patient presents with Follow-up Nail trim Others present during visit: self Vitals: Pulse 71 Wt 225 lb (102.1 kg) SpO2 92% BMI 32.21 kg/m?? Tobacco History: Social History Tobacco Use Smoking Status Former Current packs/day: 1.00 Types: Cigarettes Passive exposure: Past Smokeless Tobacco Never Allergies: Allergies Allergen Reactions Arexvy [Rsvpref3 Vac Recomb Adjuvanted] Anaphylaxis Clarithromycin Sulfa Antibiotics HUT Comment: Sulfa Drugs Additional Information: None documented in this encounter Plan of Treatment Upcoming Encounters Date Type Department Care Team (Late st Contact Info) Description 08/31/2023 10:00 AM CDT Appointment [facility] [address] [place] [phone] documented as of this encounter Visit Diagnoses Diagnosis Atherosclerosis of artery of both lower extremities (HRC)- Primary Onychomycosis Dermatophytosis of nail documented in this encounter Care Teams Injection Press Operator Relationship Specialty Start Date End Date Fercho Serrato DO [address] [place] [address] PCP - General Internal Medicine 08/01/20 documented as of this encounter
--- OUTSIDE RECORDS SUMMARY | 2023-08-01 16:48 | XMS_ITS | Encounter Summary ---
Author Organization [facility] Address [address] [place] [address] Care Team Providers Care L Tacker Name Role Phone RojelioFercho Primary Care Provider + Reason for Referral * (Routine) - New Request Specialty Diagnoses / Procedures Referred By Contac t Referred To Contact Diagnoses Second degree Mobitz II AV block Status cardiac pacemaker PAF (paroxysmal atrial fibrillation) (HRC) Procedures Pacemaker Evaluation Christiano Perkins MD [address] [place] [address] Referral ID Status Reason Start Date Expiration Date V isits Requested Visits Authorized [id number] New Request 06/06/2023 09/04/2024 1 1 Reason for Visit * Reason Comments Device Check Encounter Details Date Type Department Care Team (Late st Contact Info) Description 06/06/2023 9:20 AM CDT [facility] [address] [place] [address] Second degree Mobitz II AV block (Primary Dx); Status cardiac pacemaker; PAF (paroxysmal atrial fibrillation) (HRC) Social History Tobacco Use Types Packs/Day Years [...] Info) Description 08/31/2023 10:00 AM CDT Appointment [facility] [address] [place] [phone] documented as of this encounter Procedures Procedure Name Priority Date/Time Associated Diagnosis Comments PACEMAKER EVALUATION Routine 06/06/2023 5:11 AM CDT Second degree Mobitz II AV block Status cardiac pacemaker PAF (paroxysmal atrial fibrillation) (HRC) documented in this encounter Results * Pacemaker Evaluation (06/06/2023 5:11 AM [...] Christiano Perkins MD PN ELECTROPHYSIOLOGY ORDERABLE PACEART documented in this encounter Visit Diagnoses Diagnosis Second degree Mobitz II AV block- Primary Mobitz (type) II atrioventricular block Status cardiac pacemaker Cardiac pacemaker in situ PAF (paroxysmal atrial fibrillation) (HRC) Atrial fibrillation documented in this encounter Care Teams L Tacker Relationship Specialty Start Date End Date Fercho Serrato DO [address] [place] [address] PCP - General Internal Medicine 08/01/20 documented as of this encounter
== END 2023-08-01 17:47 | disposition home or self-care (01) ==
PROVIDERS: Emergency Provider Emergency Medicine Emergency Medical Services; PCP Internal Medicine
DX: S20.212A Contusion of left front wall of thorax, initial encounter (principal); W01.198A Fall on same level from slipping, tripping and stumbling with subsequent striking against other object, initial encounter
CPT/HCPCS: 70450; 71101; 99283; 99284

== ENCOUNTER 2023-08-16 12:44 | Emergency (ER) | payer OTHER, SELFPAY ==
[2023-08-16 12:48] VITALS: BP 109/62; PULSE 65; RESP 16; TEMP 36.6; O2SAT 92; BMI 31.9
--- NOTE | 2023-08-16 12:58 | ED.GENADULT ---
HPI - General Adult General Chief complaint: Fall/Minor Trauma Stated complaint: fall Time Seen by Provider: 08/16/23 12:58 History of Present Illness HPI narrative: Pt reports he got out of bed at 0430 this AM , fell into his door, went to stand up and fell backwards and hit the back of his head metal bar on the bed. States this bled for about one hour. Not on blood thinners. Unsure of LOC, did see stars. Has a 3/10 headache on his left side. Also has blurry vision, which is baseline. Pt states the blurry vision is slightly worse than usual on his L eye. 77-year-old man presenting to the emergency department after sustaining a head injury. About 8 hours ago yet gotten up out of bed and fell into his door. Subsequently standing up fell backwards striking his head on the metal bar of his bed. Bleeding has been controlled. Saw stars. No new neck or back pain. Does not think he passed out. Is not having significant head pain. Underlying blurriness of vision looks to be secondary to cataracts on review of record. Related Data Home Medications ?Medication ?Instructions ?Recorded ?Confirmed cholecalciferol (vitamin D3) 50 50 mcg PO QDAY 06/14/23 08/29/23 mcg (2,000 unit) capsule vitamin E (dl, acetate) 180 mg 180 mg PO QDAY 06/14/23 08/29/23 (400 unit) capsule Previous Rx's ?Medication ?Instructions ?Recorded ipratropium 0.5 mg-albuterol 3 mg 3 ml inhalation QID #90 mL 06/29/23 (2.5 mg base)/3 mL nebulization soln gabapentin 300 mg capsule 300 mg PO BID #60 caps 07/06/23 tamsulosin 0.4 mg capsule 0.4 mg PO BID #180 caps 07/08/23 oxycodone-acetaminophen 5 mg-325 1 tab PO Q8H PRN pain #30 tabs 08/08/23 mg tablet B-complex with vitamin C 1 tab PO QDAY #90 tabs 08/29/23 atorvastatin 40 mg tablet 40 mg PO QDAY #90 tabs 08/29/23 clotrimazole 1 % topical cream 1 applic topical BID PRN Yeast in 08/29/23 (Antifungal (clotrimazole)) folds #45 grams metoprolol succinate 25 mg 25 mg PO QDAY #90 tabs 09/15/23 tablet,extended release 24 hr omeprazole 40 mg capsule,delayed 40 mg PO QDAY #90 caps 09/15/23 release oxybutynin chloride 5 mg 5 mg PO QDAY #30 tabs 09/15/23 tablet,extended release 24 hr Allergies Allergy/AdvReac Type Severity Reaction Status Date / Time respiratory syncytial virus Allergy Severe Anaphylaxis Verified 08/29/23 10:19 vaccine, antigen [From Arexvy (PF)] vaccine adjuvant system, Allergy Severe Anaphylaxis Verified 08/29/23 10:19 AS01E liposomal [From Arexvy (PF)] Sulfa (Sulfonamide Allergy Intermediate Unknown Verified 08/29/23 10:19 Antibiotics) clarithromycin Allergy Unknown Unknown Verified 08/29/23 10:19 amoxicillin Allergy Verified 08/29/23 10:19 Review of Systems Status of ROS: Reports: 6 or more systems reviewed and unremarkable except as noted in History and below [facility] Medical History Fall ?W19.XXXA - Unspecified fall, initial encounter (ICD-10) (HFpEF) heart failure with preserved ejection fraction ?I50.30 - Unspecified diastolic (congestive) heart failure (ICD-10) Thrombocytopenia ?D69.6 - Thrombocytopenia, unspecified (ICD-10) CKD (chronic kidney disease) ?N18.9 - Chronic kidney disease, unspecified (ICD-10) Tobacco use ?Z72.0 - Tobacco use (ICD-10) Impingement syndrome of left shoulder ?M75.42 - Impingement syndrome of left shoulder (ICD-10) PAF (paroxysmal atrial fibrillation) ?I48.0 - Paroxysmal atrial fibrillation (ICD-10) COPD (chronic obstructive pulmonary disease) ?J44.9 - Chronic obstructive pulmonary disease, unspecified (ICD-10) History of vitamin D deficiency ?Z86.39 - Personal history of other endocrine, nutritional and metabolic disease (ICD-10) Low back pain with bilateral sciatica ?M54.42 - Lumbago with sciatica, left side (ICD-10) ?M54.41 - Lumbago with sciatica, right side (ICD-10) History of upper gastrointestinal bleeding ?Z87.19 - Personal history of other diseases of the digestive system (ICD-10) Stenosis of right carotid artery ?I65.21 - Occlusion and stenosis of right carotid artery (ICD-10) Cardiac pacemaker in situ ?Z95.0 - Presence of cardiac pacemaker (ICD-10) Hyperlipidemia ?E78.5 - Hyperlipidemia, unspecified (ICD-10) Hypertension ?I10 - Essential (primary) hypertension (ICD-10) GERD (gastroesophageal reflux disease) ?K21.9 - Gastro-esophageal reflux disease without esophagitis (ICD-10) BPH (benign prostatic hyperplasia) ?N40.0 - Benign prostatic hyperplasia without lower urinary tract symptoms (ICD-10) Coronary artery disease ?I25.10 - Atherosclerotic heart disease of [place] coronary artery without angina pectoris (ICD-10) Surgical History History of coronary artery bypass graft (2020) ?Z95.1 - Presence of aortocoronary bypass graft (ICD-10) History of permanent cardiac pacemaker placement ?Z95.0 - Presence of cardiac pacemaker (ICD-10) Social History What is your current living situation?: I presently have a place to live Problems where you live: no known problems In the past 12 months, utilities in danger of being shut off: no In past 12 months, lack of transportation kept you from medical appts, meetings, work, or getting things needed for daily living: no In the past 12 mos, have been you worried that your food would run out before you had money to buy more?: never true In the past 12 mos, the food you bought just didn't last and you didn't have money to buy more?: never true Smoking Status: Never smoker How often do you have a drink containing alcohol: never AUDIT-C Alcohol total score: 0 Non-prescribed substance use: denies use How often does anyone, including family, friends and others, physically hurt you: never How often does anyone, including family, friends and others, insult or talk down to you: never How often does anyone, including family, friends and others, threaten you with harm: never How often does anyone, including family, friends and others, scream or curse at you: never Little interest or pleasure in doing things: not at all Feeling down, depressed, or hopeless: not at all Exam Narrative: Exam Narrative: NAD. Breathing easily. Skin is warm and dry. Moving all extremities without difficulty. Mild lower extremity edema. Is well-perfused. Heart in regular rate and rhythm. Abdomen is soft nontender. Overweight. Lungs are clear. neck is supple nontender. Back nontender to palpation. Bleeding that occurred in question looks to have been a laceration about 2 cm that is on the upper posterior scalp. Not full dermal. Mild swelling. No active bleeding. Cranial nerves 2-12 intact. Pupils are brisk and equal. Const: Vital Signs, click to edit/add: Vital Signs - 24 hr 08/16/23 12:48 Temperature 97.9 F Pulse Rate [Pulse Oximeter] 65 Respiratory Rate 16 Blood Pressure [Ri ght Upper Arm] 109/62 Pulse Oximetry 92 Oxygen Delivery Me thod Room Air Documenting provider has reviewed patient's vital signs: yes Course Vital Signs Vital signs: Initial Vital Signs Temperature 97.9 F 08/16/23 12:48 Temperature Source Temporal Artery Scan 08/16/23 12:48 Pulse Rate 65 08/16/23 12:48 Respiratory Rate 16 08/16/23 12:48 Blood Pressure 109/62 08/16/23 12:48 Blood Pressure Mean 77 08/16/23 12:48 Pulse Oximetry 92 08/16/23 12:48 Oxygen Delivery Method Room Air 08/16/23 12:48 Vital Signs Temperature 97.9 F 08/16/23 12:48 Pulse Rate 65 08/16/23 12:48 Respiratory Rate 16 08/16/23 12:48 Blood Pressure 109/62 08/16/23 12:48 Pulse Oximetry 92 08/16/23 12:48 Oxygen Delivery Method Room Air 08/16/23 12:48 Temperature 97.9 F 08/16/23 12:48 Pulse Rate 65 08/16/23 12:48 Respiratory Rate 16 08/16/23 12:48 Blood Pressure 109/62 08/16/23 12:48 Pulse Oximetry 92 08/16/23 12:48 Oxygen Delivery Method Room Air 08/16/23 12:48 Medical Decision Making MDM Narrative Medical decision making narrative: Mr. Eugene feels well at this time. Did discuss evaluation including a head imaging. Appears to be in a regular rhythm here today cardiac de la paz. This sounds to have been an orthostatic event or just unsteadiness otherwise after sleep; not other concerning event. He is clear that he would prefer not to have any workup today. Differential though does include arrhythmia, subsequent head bleed. Discussed concerns, differential. See patient discharge plan for further discussion Medical Records Medical records reviewed: Yes I reviewed the patient's medical records Discharge Plan Discharge Clinical Impression: Closed head injury, Laceration of scalp, Bilateral cataracts Patient Disposition: Home w/ Parent or Adult Condition: Stable Additional Instructions: Might want to ice your head where you hit it a couple of times daily over the next day or 2. I respect that you do not want any further evaluation here today. We have not ruled out a bleed in your head. Return for marked increase in pain, repeated vomiting, new and focal weakness, unusual somnolence. Please follow-up in primary care to discuss your falls and whether further evaluation is necessary. Prescriptions: No Action gabapentin 300 mg capsule 300 mg PO BID Qty: 60 4RF atorvastatin 40 mg tablet 40 mg PO QDAY Qty: 90 3RF clotrimazole [Antifungal (clotrimazole)] 1 % cream 1 applic topical BID PRN (Reason: Yeast in folds) Qty: 45 3RF B-complex with vitamin C Tablet 1 tab PO QDAY Qty: 90 3RF vitamin E (dl, acetate) 180 mg (400 unit) capsule 180 mg PO QDAY cholecalciferol (vitamin D3) 50 mcg (2,000 unit) capsule 50 mcg PO QDAY ipratropium-albuterol 0.5 mg-3 mg(2.5 mg base)/3 mL solution for nebulization 3 ml inhalation QID Qty: 90 0RF tamsulosin 0.4 mg capsule 0.4 mg PO BID Qty: 180 3RF oxycodone-acetaminophen 5-325 mg tablet 1 tab PO Q8H PRN (Reason: pain) Qty: 30 0RF omeprazole 40 mg capsule,delayed release(DR/EC) 40 mg PO QDAY Qty: 90 3RF oxybutynin chloride 5 mg tablet extended release 24hr 5 mg PO QDAY Qty: 30 3RF metoprolol succinate 25 mg tablet extended release 24 hr 25 mg PO QDAY Qty: 90 1RF Follow Up/Referrals: Damion Wilcox MD [Primary Care Provider] - Stand Alone Forms: [employer] Info Instructions
--- OUTSIDE RECORDS SUMMARY | 2023-08-16 13:14 | XMS_ITS | Encounter Summary ---
Author Organization [employer] Address [address] [place] [address] Care Team Providers Care Alterations Workroom Clerk Name Role Phone Fercho Serarto DO Primary Care Provider [phone] Reason for Visit * Reason Comments QUESTIONS, GENERAL FORM NEEDED Encounter Details Date Type Department Care Team (Late st Contact Info) Description 05/24/[address] [facility] [address] [place] [address] Fercho Serrato DO 3 [place] [address] QUESTIONS, GENERAL (FORM NEEDED) Social [...] patient and to: Rasheed Conde, [address] [place] [address]. Rosalinda Alcantara LPN, 4:54 PM 05/24/2023 * Sanjana Muller - 05/24/2023 11:39 AM CDT Forms & Letters What form/letter are you requesting? Emotional Support Animal COPY OF ASH FORM SENT TO [facility] FOR DOG, CALL PT BACK [phone] documented in this encounter Plan of Treatment Upcoming Encounters Date Type Department Care Team (Late st Contact Info) Description 08/31/2023 10:[address] [facility] [address] [place] [phone] documented as of this encounter Visit Diagnoses Not on filedocumented in this encounter Care Teams Alterations Workroom Clerk Relationship Specialty Start Date End Date Fercho Serrato DO [address] [place] [address] PCP - General Internal Medicine 08/01/20 documented as of this encounter
--- OUTSIDE RECORDS SUMMARY | 2023-08-16 13:14 | XMS_ITS | Encounter Summary ---
Author Organization [employer] Address [address] [place] [address] Care Team Providers Care Manager Garage Name Role Phone Fercho Serrato Primary Care Provider [phone] Reason for Visit * Reason Comments Follow-up Nail trim Encounter Details Date Type Department Care Team (Latest Contact Info) Description 07/01/2023 9:40 AM CDT Office Visit [facility]ry [facility] 3 [place] [phone] Darryl Lizama, DPJose 3 [place], [place] [phone] Atherosclerosis of artery of both lower extremities [...] nail nipper and by use of power computer numerical control grinder. Nails were fully but not to the [...] [facility] [address] [place] [phone] documented as of this encounter Visit Diagnoses Diagnosis Atherosclerosis of artery of both lower extremities (HRC)- Primary Onychomycosis Dermatophytosis of nail documented in this encounter Care Teams Manager Garage Relationship Specialty Start Date End Date Fercho Serrato DO [address] [place] [address] PCP - General Internal Medicine 08/01/20 documented as of this encounter
--- OUTSIDE RECORDS SUMMARY | 2023-08-16 13:14 | XMS_ITS | Clinical Summary ---
Author Organization [facility] [facility] Address [place], [place] [address] Care Team Providers Care Tablet Technician Name Role Phone Yimi Pascual MD [...] for age 65+ 10/30/2023 12/18/2004 Care Teams Tablet Technician Relationship Specialty Start Date End Date Yimi Pascual MD [address] [place] [address] [place] [id number] PCP - General 06/25/05
--- OUTSIDE RECORDS SUMMARY | 2023-08-16 13:14 | XMS_ITS | Encounter Summary ---
Author Organization [employer] Address [address], [place] [address] Care Team Providers Care Top Lift Compressor Name Role Phone Fercho Serrato Primary Care Provider + Encounter Details Date Type Department Care Team (Late Contact Info) Description 12/13/2019 Lab Requisition [facility] [address] [place], [place] [address] Clinician, Not Found, [place] [address] Encounter for surgical aftercare following surgery on [...] Info) Description 08/31/2023 10:00 AM CDT Appointment [facility]iology [facility] 3 [place] [address] documented as of this encounter Procedures Procedure [...] Not Found Clinician LAB_1 [facility] [address] [place] [address], [facility] * (ABNORMAL) Comp Metabolic Panel (12/14/2019 [...] Not Found Clinician LAB_1 Performing Organization Address City/State/[facility] Co de Phone Number [facility] [address] documented in this encounter Visit Diagnoses [...] documented as of this encounter Care Teams Top Lift Compressor Relationship Specialty Start Date End Date Fercho Serrato DO [address] [place] [address] PCP - General Internal Medicine 08/01/20 documented as of this encounter
--- OUTSIDE RECORDS SUMMARY | 2023-08-16 13:14 | XMS_ITS | Encounter Summary ---
Author Organization [facility] Address [address] [address] Care Team Providers Care Manager Performance Name Role Phone RojelioFercho Primary Care Provider + Reason for Referral * (Routine) - New Request Specialty Diagnoses / Procedures Referred By Contac t Referred To Contact Diagnoses Second degree Mobitz II AV block Status cardiac pacemaker PAF (paroxysmal atrial fibrillation) (HRC) Procedures Pacemaker Evaluation Christiano Perkins MD [address] [place] [address] Referral ID Status Reason Start Date Expiration Date V isits Requested Visits Authorized [id number] New Request 06/06/2023 09/04/2024 1 1 Reason for Visit * Reason Comments Device Check Encounter Details Date Type Department Care Team (Late st Contact Info) Description 06/06/2023 9:20 AM CDT [facility] [address] [place] [address] Second degree Mobitz II AV [...] Info) Description 08/31/2023 10:00 AM CDT Appointment [facility] Electrophysiology Clinic [address] [place] [phone] documented as of this encounter Procedures Procedure [...] fibrillation documented in this encounter Care Teams Manager Performance Relationship Specialty Start Date End Date Fercho Serrato DO [address] [place] [address] PCP - General Internal Medicine 08/01/20 documented as of this encounter
--- OUTSIDE RECORDS SUMMARY | 2023-08-16 13:14 | XMS_ITS | Clinical Summary ---
Author Organization [facility] Address [address] [place] [address] Care Team Providers Care Agent Broker Name Role Phone Fercho Serrato Primary Care Provider [phone] Source Comments You are receiving this document as you are listed as the primary care provider,follow-up provider, or the patient has been referred to you for consultation.This is in compliance with the Medicare and[facility] Hospital[facility] EHR Incentive Program,which states Providers who transition their patient to another setting of careor provider of care or refers their patient to another provider of care shouldprovide summary care record for each transition of care or referral. [facility]evia Allergies Active Allergy Reactions Criticality Noted Date [...] rhinitis, unspecified seasonality, unspecified trigger Place 1 [place] into both nostrils two times a day. [...] persistent reactive airway disease with acute exacerbation ([facility]) Inhale 2 Puffs daily. 2 Each [...] of RSV infection 01/13/2023 Unstable angina 01/08/2023 intermediate accountant (current) use of systemic steroids 12/2022 intermediate accountant current use of inhaled steroid 023 Folic [...] Description 07/01/2023 9:40 AM CDT Office Visit [facility] Pod[facility] 3 [place] [address] Darryl Lizama, DPM Atherosclerosis of artery of both lower extremities (HRC) (Primary Dx); Onychomycosis 06/06/2023 9:20 AM CDT [facility] [address] [facility] [place], [place] [phone] Second degree Mobitz II AV block (Primary Dx); Status cardiac pacemaker; PAF (paroxysmal atrial fibrillation) (HRC) 05/24/2023 Telephone [facility] Internal Medicine [facility] [address] [place] [phone] Fercho Serrato, DO QUESTIONS, GENERAL (FORM NEEDED) from Last 3 Months Immunizations Name Administration Dates Next Due Flu Vac (3+ yrs) 11/28/2005,12/18/2004 Flu Vac Preserv Free (3+yrs) 12/25/2010 Influenza (Flucelvax) 12/03/2020 Influenza IIV4 (Quadrivalent ) 0.5mL (02459) 12/17/2019,04/05/2018 Influenza IIV4 (Quadrivalent ) Fluad, 65+ Yrs 12/06/2022,12/04/2021 Moderna 23/24 12+ 12/06/2022 Moderna Bivalent 12+ 12/04/2021 Moderna Monovalent 12+ 07/06/2021,2020,05/02/2020,2020 Moderna Monovalent 6-11 12/06/2022 PCV13 (Prevnar) 04/05/2018 PPSV23 (Pneumovax) 10/13/2013,11/28/2005 RSV Arexvy 12/07/2022 Td (7+ yrs) 07/13/2004 Td, Preservative Free 07/13/2004 Tdap 09/23/2014 Zoster RZV (Shingrix) 08/20/2022,01/30/2021,10/0 07/2020 Social History Tobacco Use Types Packs/Day Years [...] Comments Blood Pressure 120/56 03/01/2023 10:07 AM TMD TEACHER Pulse 71 07/01/2023 9:25 AM CDT Temperature 37.3 ??C (99.1 ??F) 03/01/2023 9 :29 AM TMD TEACHER Respiratory Rate 21 12/13/2022 7:36 PM CDT [...] Info) Description 08/31/2023 10:00 AM CDT Appointment [facility] [address] [place] [phone] Health Maintenance Due Date Last Done Comments Medicare Annual Wellness Visit 02/28/2023 12/30/2022, 06/08/2021 (Completed) COVID-19 Vaccine (2022- season) 2023 12/06/2022, 12/06/2022, 12/04/2021, Additional history [...] this topic Medical Devices Implanted Type Area Statue Carver Device Identifier Shelf Expiration Date Model / Serial / Lot Pacemaker Cardiac Bypass X5 Procedures Procedure Name Priority Date/Time Associated Diagnosis Comments PACEMAKER EVALUATION Routine 06/06/2023 5:11 AM CDT Second degree Mobitz II AV block Status cardiac pacemaker PAF (paroxysmal atrial fibrillation) (HRC) CT CHEST WO IV CONT LUNG SCREENING Routine 04/11/2023 1:42 PM TMD TEACHER Tobacco use (HRC) Nicotine dependence with nicotine-induced [...] IV Cont Lung Screening (04/11/2023 1:42 PM TMD TEACHER) Anatomical Region Laterality Modality Chest, Lung Computed Tomogra phy 04/11/2023 1:25 PM TMD TEACHER Impressions 04/11/2023 2:11 PM TMD TEACHER COMPARISON: 04/09/2022 TECHNIQUE: Images through the chest [...] LDL (if Needed) (12/30/2022 8:08 AM CDT) Pathologist [facility] Cholesterol 126 0 - 199 mg/dL 12/30/2022 8:40 AM [facility] Triglyceride 115 <=149 mg/dL 12/30/2022 8:40 AM [facility] HDL Cholesterol 32(L) >=40 mg/dL 8:40 AM [facility] LDL, Calculated 71 <130 mg/dL 3 8:40 AM [facility] Non HDL Chol, Calculated 94 <=159 mg/dL 12/30/2022 8:40 AM [facility] Cholesterol/HDL Ratio 3.9 <=5.0 12/30/2022 8:40 AM [facility] Hours Fasting 10.0 8 - 12 Hours 12/30/2022 8:40 AM [facility] Blood Venipuncture / Unknown 12/30/2022 8:08 AM CDT 12/30/2022 8:13 AM CDT Fercho Serrato DO LAB_1 [facility] [address] [facility] [address] [place] [address] * Hepatitis C Antibody, with Reflex (09/11/2020 12:26 PM CDT) Hepatitis C Antibody Negative (Non Reactive) Negative (Non Reactive) 09/11/2020 4:26 PM CDT [facility] Comment:Antibodies to HCV no t detected. Does not exclude the possiblity of exposure to HCV. Blood Venipuncture / Unknown 09/11/2020 12:26 PM CDT 09/11/2020 12:36 PM CDT Roddyjulissa Galarza Rojelio VYAS LAB_1 [facility] [address] [place] [address], [facility] from Last 3 Months or Most Recently [...] 1:46 PM 08/26/2021 5:07 PM Care Teams Agent Broker Relationship Specialty Start Date End Date Fercho Serrato DO [address] [place] [address] PCP - General Internal Medicine 08/01/20
--- OUTSIDE RECORDS SUMMARY | 2023-08-16 13:14 | XMS_ITS | Encounter Summary ---
[facility] Address [address], [place] [address] Care Team Providers Care Book Packer Name Role Phone Fercho Guido DO Primary Care Provider + [phone] Reason for Visit * Reason Comments Refill E-400 180 MG (400 UN IT) CAPS [Pharmacy Med Name: E-400 400UNIT] Encounter Details Date Type Department Care Team (Late st Contact Info) Description 05/10/[address] [facility] Medicine [facility] [address] [place] [phone] Fercho Guido DO 3 [place] [address] Refill (E-400 180 MG (400 UNIT) CAPS [...] scheduled visit: 05/31/2023 (with FERCHO GUIDO) [facility] Embedded Refills, Reference: [id number], 05/10/2023 9:18:12 AM CDT, Domenic: TINO Jones [facility] - Primary Care [[id number]] ([id number]) documented in this encounter Plan of Treatment Upcoming Encounters Date Type Department Care Team (Late st Contact Info) Description 08/31/2023 10:[address] [facility] Elect[facility]iology [facility] [address] [place] [phone] documented as of this encounter Visit Diagnoses Diagnosis Nocturnal leg cramps Sleep related leg cramps documented in this encounter Care Teams Book Packer Relationship Specialty Start Date End Date Fercho Guido DO [address] [place] [address] PCP - General Internal Medicine 08/01/20 documented as of this encounter
== END 2023-08-16 13:15 | disposition home or self-care (01) ==
LOC: ED 13:12
PROVIDERS: Emergency Provider Family Medicine; PCP Internal Medicine
DX: S01.01XA Laceration without foreign body of scalp, initial encounter (principal); W18.09XA Striking against other object with subsequent fall, initial encounter
CPT/HCPCS: 99283; 99284

== ENCOUNTER 2023-11-15 08:47 | Outpatient (CLI) | payer OTHER, SELFPAY ==
--- OUTSIDE RECORDS SUMMARY | 2023-11-15 08:49 | XMS_ITS | Clinical Summary ---
Author Organization [facility] Address [address] [place] [address] Care Team Providers Care Manager Oracle Retail Name Role Phone Fercho Serrato Primary Care Provider [phone] Source Comments You are receiving this document as you are listed as the primary care provider,follow-up provider, or the patient has been referred to you for consultation.This is in compliance with the Medicare andOhio[facility] Hospitalcaid EHR Incentive Program,which states Providers who transition their patient to another setting of careor provider of care or refers their patient to another provider of care shouldprovide summary care record for each transition of care or referral. [employer] Allergies Active Allergy Reactions Criticality Noted Date [...] rhinitis, unspecified seasonality, unspecified trigger Place 1 [place] into both nostrils two times a day. [...] times a day. 180 Capsule 1 10/15/2022 Active oxybutynin (DITROPAN XL) 5 MG 24 hour release tabletIndications: OAB (overactive bladder) Take 1 Tablet (5 mg) by mouth daily. 90 Tablet 1 10/15/2022 Active omeprazole (PRILOSEC) 40 MG capsuleIndications :Gastroesophageal reflux disease with esophagitis without hemorrhage Take 1 Capsule (40 mg) by mouth daily. 90 Capsule 1 10/15/2022 Active tiotropium-olodate rol (STIOLTO RESPIMAT) 2.5-2.5 MCG/ACT inhalerIndications :Moderate persistent reactive airway disease with acute exacerbation (HRC) Inhale 2 Puffs daily. 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 steroid 023 Folic [...] cramps 03/09/2022 Controlled substance agreement signed 03/09/2022 Overview (03/01/2023): Signed 03/01/2023 Signed 03/09/2022 Acute on chronic respiratory failure with hypoxi a 12/09/2021 Pneumonia due to COVID-19 virus 12/07/2021 Temporal pain 06/18/2021 Dyslipidemia 12/21/2020 Gastroesophageal reflux disease 12/21/2020 Vitamin D deficiency 12/21/2020 Contusion of right hip 12/21/2020 Shoulder impingement syndrome, left 12/21/2020 Status 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 PAF (paroxysmal atrial fibrillation) 08/09/2020 Overview (06/20/2022): Not anticoagulated due to high risk for bleeding, hx of UGI bleed Carotid artery disease 08/09/2020 Overview (08/09/2020): 11/27/19 Carotid US 16 to 49% stenosis of the right internal carotid artery, 16 to 49% stenosis of the left internal carotid artery Family history of CABG 08/09/2020 Overview (08/09/2020): 12/18/19 SADLER-LAD,??SVG to M2 - M3,??SVG to [...] for screening for malignant neoplasm 08/30/2000 12/17/2021 Overview (12/29/2018): SCREENING FOR MALIGNANCY NOS Immunizations Name Administration Dates Next Due Flu Vac (3+ yrs) 11/28/2005,12/18/2004 Flu Vac Preserv Free (3+yrs) 12/25/2010 Influenza (Flucelvax) 12/03/2020 Influenza IIV4 (Quadrivalent ) 0.5mL (14995) 12/17/2019,04/05/2018 Influenza IIV4 (Quadrivalent ) Fluad, 65+ Yrs 12/06/2022,12/04/2021 Moderna Bivalent 12+ 12/04/2021 Moderna COVID-19 12+ 12/06/2022 Moderna Monovalent 12+ 07/06/2021,2020,05/02/2020,2020 Moderna Monovalent 6-11 [...] Comments Blood Pressure 120/56 03/01/2023 10:07 AM GAME MODERATOR Pulse 71 07/01/2023 9:25 AM CDT Temperature 37.3 ??C (99.1 ??F) 03/01/2023 9 :29 AM GAME MODERATOR Respiratory Rate 21 12/13/2022 7:36 PM CDT Oxygen Saturation 92% 07/01/2023 9:2 5 AM CDT Inhaled Oxygen Concentration - - Weight 102.1 kg (225 lb) 07/01/2023 9:2 5 AM CDT Height 178 cm (5' 10.08) 12/30/2022 8: 44 AM CDT With Shoes, Pt decline to remove Body Mass Index 32.21 12/30/2022 8:44 AM CDT Plan of Treatment Health Maintenance Due Date Last Done Comments MTM Covered 1945 COVID-19 Vaccine ( season) 2023 12/06/2022, 12/06/2022, 12/04/2021, Additional history exists Influenza (#1) 2023 12/06/2022, 08/2021, 12/03/2020, Additional history exists Adult Preventive Visit 12/31/2023 , 06/29/2022, 06/08/2021 DTaP/Tdap/Td (2 - Tdap) 09/23/2024 09/24/19 15, 07/13/2004, 07/13/2004 Pneumococcal 65+ Yrs Completed 04/05/2018, 10/13/2013, 11/28/2005 Hep C Screening (Preventive Services) Completed 09/11/2020 Zoster/Shingles Completed 08/20/2022, 04/2020, 12/03/2020 RSV Completed 12/07/2022 Cholesterol Discontinued 12/30/2022, 02/28, 06/08/2021, Additional history [...] this topic Medical Devices Implanted Type Area Box Shook Patcher Device Identifier Shelf Expiration Date Model / Serial / Lot Pacemaker Cardiac Bypass X5 Procedures Procedure Name Priority Date/Time Associated Diagnosis Comments CT CHEST WO IV CONT LUNG SCREENING Routine 04/11/2023 1:42 PM GAME MODERATOR Tobacco use (HRC) Nicotine dependence with nicotine-induced disorder, unspecified nicotine product type (HRC) Smoking greater than 40 pack years (HRC) LIPID PANEL & DIRECT LDL (IF NEEDED) Routine 12/30/2022 8:08 AM CDT Dyslipidemia (HRC) HEPATITIS C ANTIBODY, WITH REFLEX Waiting 09/11/2020 12:26 PM CDT Need for hepatitis C screening test from Last 3 Months or Most Recently Relevant to Health Maintenance Results * CT Chest WO IV Cont Lung Screening (04/11/2023 1:42 PM GAME MODERATOR) Anatomical Region Laterality Modality Chest, Lung Computed Tomogra phy 04/11/2023 1:25 PM GAME MODERATOR Impressions 04/11/2023 2:11 PM GAME MODERATOR COMPARISON: 04/09/2022 TECHNIQUE: Images through the chest [...] 0 - 199 mg/dL 12/30/2022 8:40 AM [facility] Triglyceride 115 <=149 mg/dL 12/30/2022 8:40 AM [facility] HDL Cholesterol 32(L) >=40 mg/dL 3 8:40 AM [facility] LDL, Calculated 71 <130 mg/dL 3 8:40 AM [facility] Non HDL Chol, Calculated 94 <=159 mg/dL 12/30/2022 8:40 AM [facility] Cholesterol/HDL Ratio 3.9 <=5.0 12/30/2022 8:40 AM [facility] Hours Fasting 10.0 8 - 12 Hours 12/30/2022 8:40 AM [facility] Blood Venipuncture / Unknown 12/30/2022 8:08 AM CDT 12/30/2022 8:13 AM CDT Fercho Serrato DO LAB_1 [facility] [address] [address] * Hepatitis C Antibody, with Reflex (09/11/2020 12:26 PM CDT) Hepatitis C Antibody Negative (Non Reactive) Negative (Non Reactive) 09/11/2020 4:26 PM CDT [facility] Comment:Antibodies to HCV no t detected. Does not exclude the possiblity of exposure to HCV. Blood Venipuncture / Unknown 09/11/2020 12:26 PM CDT 09/11/2020 12:36 PM CDT Fercho Serrato DO LAB_1 [facility] [address] [employer] [address] from Last 3 Months or Most Recently [...] 1:46 PM 08/26/2021 5:07 PM Care Teams Manager Oracle Retail Relationship Specialty Start Date End Date Fercho Serrato DO [address] [place] [id number] PCP - General Internal Medicine 08/01/20
--- OUTSIDE RECORDS SUMMARY | 2023-11-15 08:50 | XMS_ITS | Clinical Summary ---
Author Organization [employer] [facility] Address [place], [place] [address] Care Team Providers Care Customer Service Representative Teacher Name Role Phone Yimi Pascual MD Primary [...] for age 50+ (1 of 2) 1994 RSV vaccine for adults or pr egnancy (1 - 1-dose 60+ series) 2004 Pneumococcal series for age 65+ (1 of 1 - PCV) 2009 Tetanus booster 07/13/2014 07/13/2004 COVID-19 vaccine series ( - 2022- season) 2023 05/02/2020, 04/04/2020 Influenza for age 65+ 10/30/2023 12/18/2004 Care Teams Customer Service Representative Teacher Relationship Specialty Start Date End Date Yimi Pascual MD [facility] [place] [address] PCP - General 06/25/05
--- OUTSIDE RECORDS SUMMARY | 2023-11-15 08:50 | XMS_ITS | Encounter Summary ---
Author Organization [employer] Address [address] [place] [address] Care Team Providers Care Inspector Balance Bridge Name Role Phone Fercho Serrato Primary Care Provider + Encounter Details Date Type Department Care Team (Late st Contact Info) Description 12/13/2019 Lab Requisition [facility] [address] [facility] [place] [address] Clinician, Not Found, [place] [address] Encounter for surgical aftercare following surgery on [...] as of this encounter Plan of Treatment Not on file documented as of this encounter Procedures Procedure [...] - 10.5 x10(9)/L 12/14/2019 12:51 PM CDT [facility] RBC 2.85(L) 4.32 - 5.72 x10(12)/L 12/14/2019 12:51 PM CDT [facility] Hemoglobin 9.3(L) 13.5 - 17.5 g/dL 12/14/2019 12:51 PM CDT [facility] HCT 30.3(L) 38.8 - 50.0 % 12/14/2019 12:51 PM CDT [facility] MCV 106.3(H) 80.0 - 100.0 fL 12/14/2019 12:51 PM CDT [facility] MCH 32.6 27.6 - 33.3 pg 12/14/2019 12:51 PM CDT [facility] MCHC 30.7(L) 31.5 - 35.2 g/dL 12/14/2019 12:51 PM CDT [facility] RDW 14.5 11.9 - 15.5 % 12/14/2019 12:51 PM CDT [facility] Platelets 358 150 - 450 x10(9)/L 12/14/2019 12:51 PM CDT [facility] Automated NRBC 0 <=0 /100 WBC 12/14/2019 12:51 PM CDT [facility] Neutrophil Absolute 6.1 1.7 - 7.0 10(9)/L 12/14/2019 12:51 PM CDT [facility] Lymphocyte Absolute 1.3 1.0 - 4.8 10(9)/L 12/14/2019 12:51 PM CDT [facility] Monocyte Absolute 0.7 0.2 - 0.9 10(9)/L 12/14/2019 12:51 PM CDT [facility] Eosinophil Absolute 0.1 0.0 - 0.5 10(9)/L 12/14/2019 12:51 PM CDT [facility] Basophil Absolute 0.1 0.0 - 0.3 10(9)/L 12/14/2019 12:51 PM CDT [facility] Immature Granulocyte % 0.5 0.0 - 0.5 % 12/14/2019 12:51 PM CDT [facility] Blood Venipuncture / Unknown 12/14/2019 7:10 AM CDT 12/14/2019 12:04 PM CDT Not Found Clinician LAB_1 [facility] [address] * (ABNORMAL) Comp Metabolic Panel (12/14/2019 7:10 AM CDT) Sodium 136 136 - 145 mmol/L 12/14/2019 1:15 PM CDT [facility] Potassium 4.2 3.5 - 5.1 mmol/L 12/14/2019 1:15 PM CDT [facility] Chloride 101 98 - 109 mmol/L 12/14/2019 1:15 PM CDT [facility] CO2 27 20 - 29 mmol/L 12/14/2019 1:15 PM CDT [facility] Anion Gap 8 7 - 16 mmol/L 12/14/2019 1:15 PM CDT [facility] Calcium 8.8 8.4 - 10.4 mg/dL 12/14/2019 1:15 PM CDT [facility] BUN 16 7 - 26 mg/dL 12/14/2019 1:15 PM CDT [facility] Creatinine 1.05 0.73 - 1.18 mg/dL 12/14/2019 1:15 PM CDT [facility] GFR, Estimated >60 >60 mL/min/1.7 3m2 12/14/2019 1:15 PM CDT [facility] Alkaline Phosphatase 123 40 - 150 U/L 12/14/2019 1:15 PM CDT [facility] AST (SGOT) 23 10 - 40 U/L 12/14/2019 1:15 PM CDT [facility] ALT (SGPT) 29 0 - 55 U/L 12/14/2019 1:15 PM CDT [facility] Bilirubin, Total 0.5 0.2 - 1.2 mg/dL 12/14/2019 1:15 PM CDT [facility] Protein, Total 6.1(L) 6.4 - 8.3 g/dL 12/14/2019 1:15 PM CDT [facility] Albumin 3.1(L) 3.5 - 5.0 g/dL 12/14/2019 1:15 PM CDT [facility] Glucose 95 70 - 100 mg/dL 12/14/2019 1:15 PM CDT [facility] Comment:The given reference range is for the fasting state. Non-fasting reference range for glucose is 70 - 180 mg/dL. Hours Fasting Unknown 12/14/2019 1:15 PM CDT [facility] Blood Venipuncture / Unknown 12/14/2019 7:10 AM CDT 12/14/2019 12:02 PM CDT Not Found Clinician LAB_1 Performing Organization Address City/State/[facility] Co de Phone Number [facility] [address], [place] [phone] [place] [address] documented in this encounter Visit Diagnoses Diagnosis [...] documented as of this encounter Care Teams Inspector Balance Bridge Relationship Specialty Start Date End Date Fercho Serrato DO [address] [place] [address] PCP - General Internal Medicine 08/01/20 documented as of this encounter
== END 2023-11-15 08:48 | disposition home or self-care (01) ==
LOC: NFLDREF 08:48
PROVIDERS: PCP Internal Medicine; Visit Provider Internal Medicine
DX: J44.9 Chronic obstructive pulmonary disease, unspecified (principal); I10 Essential (primary) hypertension
CPT/HCPCS: 80053

== ENCOUNTER 2024-01-03 10:06 | Outpatient (CLI) | payer OTHER, SELFPAY ==
--- OUTSIDE RECORDS SUMMARY | 2024-01-03 10:13 | XMS_ITS | Encounter Summary ---
Author Organization [facility] Address [address] [place] [address] Care Team Providers Care Lead Accountant Name Role Phone Rojelio Fercho Galarza Primary Care Provider + Reason for Referral * (Routine) - New Request Specialty Diagnoses / Procedures Referred By Contac t Referred To Contact Diagnoses Second degree Mobitz II AV block Status cardiac pacemaker Procedures Pacemaker Evaluation Idris Hanson MD [address] [place] [address] Referral ID Status Reason Start Date Expiration Date V isits Requested Visits Authorized [id number] New Request 12/02/2023 03/02/2025 1 1 Reason for Visit * Reason Comments Device Check Encounter Details Date Type Department Care Team (Late st Contact Info) Description 12/02/2023 3:40 PM CDT [facility] [address] [place] [address] Second degree Mobitz II AV block (Primary Dx); Status cardiac pacemaker Social History Tobacco Use Types Packs/Day Years [...] Date/Time Associated Diagnosis Comments PACEMAKER EVALUATION Routine 12/02/2023 4:30 AM CDT Second degree Mobitz II AV block Status cardiac pacemaker documented in this encounter Results * Pacemaker Evaluation (12/02/2023 4:30 AM CDT) 12/02/2023 4:30 AM CDT Narrative PACEART - 12/02/2023 4:30 AM CDT Normal dual chamber pacemaker function. This is a Latitude transmission. The device was interrogated to assess data and settings. One NSVT episode noted, lasting 8 seconds at 168bpm. EGM shows appropriate detection. No atrial high rate episodes noted. RV paced 97%. Battery voltage WNL. RTC later this month as scheduled. Please contact if any questions. dwk Idris Hanson MD PN ELECTROPHYSIOLOGY ORDERABLE PACENORMAN documented in this encounter Visit Diagnoses Diagnosis Second degree Mobitz II AV block- Primary Mobitz (type) II atrioventricular block Status cardiac pacemaker Cardiac pacemaker in situ documented in this encounter Care Teams Lead Accountant Relationship Specialty Start Date End Date Fercho Serrato DO [address] [place] [address] PCP - General Internal Medicine 08/01/20 documented as of this encounter
--- OUTSIDE RECORDS SUMMARY | 2024-01-03 10:13 | XMS_ITS | Clinical Summary ---
Author Organization [employer] [facility] Address [place], [place] [address] Care Team Providers Care It Sales Executive Name Role Phone Yimi Pascual MD Primary [...] - PCV) 2009 Tetanus booster 07/13/2014 07/13/2004 RSV vaccine for adults or pr egnancy (1 - 1-dose 75+ series) 08/24/2019 COVID-19 vaccine series ( - season) 2023 05/02/2020, 04/04/2020 Influenza for age 65+ 10/30/2023 12/18/2004 Care Teams It Sales Executive Relationship Specialty Start Date End Date Yimi Pascual MD [facility] [address] PCP - General 06/25/05
--- OUTSIDE RECORDS SUMMARY | 2024-01-03 10:13 | XMS_ITS | Clinical Summary ---
Author Organization [facility] Address [address] [place] [address] Care Team Providers Care Drywall Application Supervisor Name Role Phone Fercho Serrato Primary Care Provider [phone] Source Comments You are receiving this document as you are listed as the primary care provider,follow-up provider, or the patient has been referred to you for consultation.This is in compliance with the Medicare and[facility] EHR Incentive Program,which states Providers who transition their patient to another setting of careor provider of care or refers their patient to another provider of care shouldprovide summary care record for each transition of care or referral. Space Monkey Allergies Active Allergy Reactions Criticality Noted Date [...] rhinitis, unspecified seasonality, unspecified trigger Place 1 [place] into both nostrils two times a day. 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 [address] Second degree Mobitz II AV block (Primary Dx); Status cardiac pacemaker from Last 3 Months Immunizations Name Administration Dates Next Due Flu Vac (3+ yrs) 11/28/2005,12/18/2004 Flu Vac Preserv Free (3+yrs) 12/25/2010 Influenza (Flucelvax) 12/03/2020 Influenza IIV4 (Quadrivalent ) 0.5mL (55156) 12/17/2019,04/05/2018 Influenza IIV4 (Quadrivalent ) Fluad, 65+ Yrs 12/06/2022,12/04/2021 Moderna Bivalent 12+ 12/04/2021 Moderna COVID-19 12+ 12/06/2022 Moderna Monovalent 12+ 07/06/2021,2020,05/02/2020,2020 Moderna Monovalent 6-11 12/06/2022 PCV13 (Prevnar) 04/05/2018 PPSV23 (Pneumovax) 10/13/2013,11/28/2005 RSV Arexvy 12/07/2022 Td (7+ yrs) 07/13/2004 Td, Preservative Free 07/13/2004 Tdap 09/23/2014 Zoster RZV (Shingrix) 08/20/2022,01/30/2021,1007/2020 Social History Tobacco Use Types Packs/Day Years [...] Comments Blood Pressure 120/56 03/01/2023 10:07 AM VEST MAKER Pulse 71 07/01/2023 9:25 AM CDT Temperature 37.3 ??C (99.1 ??F) 03/01/2023 9 :29 AM VEST MAKER Respiratory Rate 21 12/13/2022 7:36 PM CDT [...] 2023 12/06/2022, 08/2021, 12/03/2020, Additional history exists DTaP/Tdap/Td (2 - Tdap) [...] on patient's age to complete this topic RSV Aged Out No longer eligi ble based on patient's age to complete this topic MCV4 Aged Out No longer eligi ble based on patient's age to complete this topic Medical Devices Implanted Type Area Human Resources Representative Device Identifier Shelf Expiration Date Model / Serial / Lot Pacemaker Cardiac Bypass X5 Procedures Procedure Name Priority Date/Time Associated Diagnosis Comments PACEMAKER EVALUATION Routine 12/02/2023 4:30 AM CDT Second degree Mobitz II AV block Status cardiac pacemaker CT CHEST WO IV CONT LUNG SCREENING Routine 04/11/2023 1:42 PM VEST MAKER Tobacco use (HRC) Nicotine dependence with nicotine-induced [...] to Health Maintenance Results * Pacemaker Evaluation (12/02/2023 4:30 AM [...] dwk Idris Hanson MD PN ELECTROPHYSIOLOGY ORDERABLE PACEART * CT Chest WO IV Cont Lung Screening (04/11/2023 1:42 PM VEST MAKER) Anatomical Region Laterality Modality Chest, Lung Computed Tomogra phy 04/11/2023 1:25 PM VEST MAKER Impressions 04/11/2023 2:11 PM VEST MAKER COMPARISON: 04/09/2022 TECHNIQUE: Images through the chest [...] 0 - 199 mg/dL 12/30/2022 8:40 AM [facility] Triglyceride 115 <=149 mg/dL 12/30/2022 8:40 AM [facility] HDL Cholesterol 32(L) >=40 mg/dL 8:40 AM [facility] LDL, Calculated 71 <130 mg/dL 8:40 AM [facility] Non HDL Chol, Calculated 94 <=159 mg/dL 12/30/2022 8:40 AM [facility] Cholesterol/HDL Ratio 3.9 <=5.0 12/30/2022 8:40 AM [facility] Hours Fasting 10.0 8 - 12 Hours 12/30/2022 8:40 AM [facility] Blood Venipuncture / Unknown 12/30/2022 8:08 AM CDT 12/30/2022 8:13 AM CDT Fercho Serrato DO LAB_1 [facility] [address] [address] * Hepatitis C Antibody, with Reflex (09/11/2020 12:26 PM CDT) Pathologist [facility] Hepatitis C Antibody Negative (Non Reactive) Negative (Non Reactive) 09/11/2020 4:26 PM CDT [facility] Comment:Antibodies to HCV no t detected. Does not exclude the possiblity of exposure to HCV. Blood Venipuncture / Unknown 09/11/2020 12:26 PM CDT 09/11/2020 12:36 PM CDT Fercho Serrato DO LAB_1 [facility] [address] [place], [place] [email or web address] from Last 3 Months or Most Recently [...] 1:46 PM 08/26/2021 5:07 PM Care Teams Drywall Application Supervisor Relationship Specialty Start Date End Date Fercho Serrato DO [address] [place] [address] PCP - General Internal Medicine 08/01/20
--- OUTSIDE RECORDS SUMMARY | 2024-01-03 10:13 | XMS_ITS | Encounter Summary ---
Author Organization [employer] Address [address] [place] [address] Care Team Providers Care Quality Assurance Coordinator Name Role Phone Fercho Serrato Primary Care Provider + Encounter Details Date Type Department Care Team (Late st Contact Info) Description 12/13/2019 Lab Requisition [facility] [address] [facility] [place] [address] Clinician, Not Found, [place] [address] Encounter for surgical aftercare following surgery on [...] - 10.5 x10(9)/L 12/14/2019 12:51 PM CDT [facility] RBC 2.85(L) 4.32 - 5.72 x10(12)/L 12/14/2019 12:51 PM CDT [facility] Hemoglobin 9.3(L) 13.5 - 17.5 g/dL 12/14/2019 12:51 PM CDT [facility] HCT 30.3(L) 38.8 - 50.0 % 12/14/2019 12:51 PM CDT [facility] MCV 106.3(H) 80.0 - 100.0 fL 12/14/2019 12:51 PM CDT [facility] MCH 32.6 27.6 - 33.3 pg 12/14/2019 12:51 PM CDT [facility] MCHC 30.7(L) 31.5 - 35.2 g/dL 12/14/2019 12:51 PM CDT [facility] RDW 14.5 11.9 - 15.5 % 12/14/2019 12:51 PM CDT [facility] Platelets 358 150 - 450 x10(9)/L 12/14/2019 12:51 PM CDT [facility] Automated NRBC 0 <=0 /100 WBC 12/14/2019 12:51 PM CDT [facility] Neutrophil Absolute 6.1 1.7 - 7.0 10(9)/L 12/14/2019 12:51 PM CDT [facility] Lymphocyte Absolute 1.3 1.0 - 4.8 10(9)/L 12/14/2019 12:51 PM CDT [facility] Monocyte Absolute 0.7 0.2 - 0.9 10(9)/L 12/14/2019 12:51 PM CDT [facility] Eosinophil Absolute 0.1 0.0 - 0.5 10(9)/L 12/14/2019 12:51 PM CDT [facility] Basophil Absolute 0.1 0.0 - 0.3 10(9)/L 12/14/2019 12:51 PM CDT [facility] Immature Granulocyte % 0.5 0.0 - 0.5 % 12/14/2019 12:51 PM CDT [facility] Blood Venipuncture / Unknown 12/14/2019 7:10 AM CDT 12/14/2019 12:04 PM CDT Not Found Clinician LAB_1 [facility] [address] * (ABNORMAL) Comp Metabolic Panel (12/14/2019 7:10 AM CDT) Sodium 136 136 - 145 mmol/L 12/14/2019 1:15 PM CDT [facility] Potassium 4.2 3.5 - 5.1 mmol/L 12/14/2019 1:15 PM CDT [facility] Chloride 101 98 - 109 mmol/L 12/14/2019 1:15 PM CDT [facility] CO2 27 20 - 29 mmol/L 12/14/2019 1:15 PM CDT [facility] Anion Gap 8 7 - 16 mmol/L 12/14/2019 1:15 PM CDT [facility] Calcium 8.8 8.4 - 10.4 mg/dL 12/14/2019 1:15 PM CDT [facility] BUN 16 7 - 26 mg/dL 12/14/2019 1:15 PM CDT [facility] Creatinine 1.05 0.73 - 1.18 mg/dL 12/14/2019 1:15 PM CDT [facility] GFR, Estimated >60 >60 mL/min/1.7 3m2 12/14/2019 1:15 PM CDT [facility] Alkaline Phosphatase 123 40 - 150 U/L 12/14/2019 1:15 PM CDT [facility] AST (SGOT) 23 10 - 40 U/L 12/14/2019 1:15 PM CDT [facility] ALT (SGPT) 29 0 - 55 U/L 12/14/2019 1:15 PM CDT [facility] Bilirubin, Total 0.5 0.2 - 1.2 mg/dL 12/14/2019 1:15 PM CDT [facility] Protein, Total 6.1(L) 6.4 - 8.3 g/dL 12/14/2019 1:15 PM CDT [facility] Albumin 3.1(L) 3.5 - 5.0 g/dL 12/14/2019 1:15 PM CDT [facility] Glucose 95 70 - 100 mg/dL 12/14/2019 1:15 PM CDT [facility] Comment:The given reference range is for the fasting state. Non-fasting reference range for glucose is 70 - 180 mg/dL. Hours Fasting Unknown 12/14/2019 1:15 PM CDT [facility] Blood Venipuncture / Unknown 12/14/2019 7:10 AM CDT 12/14/2019 12:02 PM CDT Not Found Clinician LAB_1 Performing Organization Address City/State/[facility] Co de Phone Number [facility] [address] [place], [place] [phone] [place] [address] documented in this encounter Visit Diagnoses Diagnosis [...] documented as of this encounter Care Teams Quality Assurance Coordinator Relationship Specialty Start Date End Date Fercho Serrato DO [address] [place] [address] PCP - General Internal Medicine 08/01/20 documented as of this encounter
== END 2024-01-03 10:07 | disposition home or self-care (01) ==
LOC: NFLDREF 10:08
PROVIDERS: PCP Internal Medicine; Visit Provider Internal Medicine
DX: R53.1 Weakness (principal)
CPT/HCPCS: 80053

== ENCOUNTER 2024-06-14 08:19 | Outpatient (CLI) | payer MEDICARE, MEDICAID, SELFPAY | END 2024-06-14 08:20 | disposition home or self-care (01) | LOC: NFLDREF 06-17 13:33 | PROVIDERS: PCP Internal Medicine; Referring Provider Internal Medicine; Visit Provider Internal Medicine Cardiovascular Disease | DX: E78.5 Hyperlipidemia, unspecified (principal) | CPT/HCPCS: 80061 ==

== ENCOUNTER 2024-07-12 12:00 | Outpatient (CLI) | payer MEDICARE, MEDICAID, SELFPAY | END 2024-07-12 12:01 | disposition home or self-care (01) | LOC: NFLDREF 07-19 22:59 | PROVIDERS: PCP Internal Medicine; Visit Provider Internal Medicine Cardiovascular Disease | DX: I50.30 Unspecified diastolic (congestive) heart failure (principal); I48.0 Paroxysmal atrial fibrillation; I10 Essential (primary) hypertension; I25.10 Atherosclerotic heart disease of native coronary artery without angina pectoris; I65.21 Occlusion and stenosis of right carotid artery; R53.1 Weakness | CPT/HCPCS: 80048; 82550; 84443 ==

== ENCOUNTER 2024-07-13 14:07 | Emergency (ER) | payer MEDICARE, MEDICAID, SELFPAY ==
[2024-07-13] VITALS (9 sets, daily range): BP systolic 146–175; BP diastolic 68–144; PULSE 61–76; RESP 10–32; TEMP 36.6; O2SAT 78–99; BMI 32.1
--- NOTE | 2024-07-13 14:38 | ED_ITS ---
HPI - SOB/Dyspnea General Time Seen by Provider: 14:38 Date Seen: 07/13/24 Chief Complaint: Shortness of Breath/Dyspnea Stated Complaint: Fluid in his lungs, sent by Counter Clerk Time Seen by Provider: 07/13/24 14:37 Source: patient, RN notes reviewed and old records reviewed Mode of arrival: ambulatory Limitations: no limitations History of Present Illness HPI Narrative: This 78-year-old male was referred by his psychologist research assistant from [facility]. Patient sees Dr. Sosa for Cardiology, had a chest x-ray yesterday and labs done. He was referred to the ER for ?IV medicine?. Patient is noted to have heart failure with preserved ejection fraction but states he is not on any chronic diuretics. Did review his medication reconciliation and he does not have any Lasix. He states he was sent here for an IV and he has not had an IV yet. Explained to him that I was not aware of his arrival, did not speak with anyone. We have procedure that we follow in the ER and we will certainly review everything. I did see his labs from yesterday with a white blood count of 8090, hemoglobin stable at 12.1, platelets [id number]. Basic metabolic panel was normal. He did have a chest x-ray yesterday showing bilateral pleural effusions, increased on the right. Vascular congestion suggesting fluid overload. He indeed is not on a chronic diuretic. He did come in without his oxygen, O2 sats were 70% on room air. When questioned on this, he does not travel with oxygen around town. He states he does not go far but he typically will not uses oxygen when going out of the house. He does have carotid artery disease on the right side, less than 50%. MPI SPECT from June 2022 had a fixed, small-sized moderate perfusion defect in the inferior and apex [place]. Echo presumably from the same time showed left ventricular ejection fraction at 53%. Abnormal septal motion consistent with pacemaker. Mild aortic regurgitation. Mild aortic stenosis with peak velocity across the aortic valve 2 m/sec and mean gradient 10 mmHg. Patient denies any chest pain, is not having any current significant symptoms. Is upset that he does not already have an IV in place. He has had shortness of breath for 3 weeks, no fevers or chills. His swelling in his legs have been present for 5 years since he had his bypass surgery. No chest pain as already noted. Related Data Home Medications ?Medication ?Instructions ?Recorded ?Confirmed cholecalciferol (vitamin D3) 50 50 mcg PO QDAY 06/14/23 07/13/24 mcg (2,000 unit) capsule aspirin 81 mg tablet,delayed 81 mg PO QDAY 05/15/24 07/13/24 release (Adult Aspirin Regimen) azelastine 137 mcg (0.1 %) nasal 1 spray intranasal BID PRN 05/15/24 07/13/24 spray mecobalamin (vitamin B12) 1,000 1,000 mcg PO QDAY 05/15/24 07/13/24 mcg lozenges nitroglycerin 0.4 mg sublingual 0.4 mg sublingual Q5M PRN 05/15/24 07/13/24 tablet Previous Rx's ?Medication ?Instructions ?Recorded tamsulosin 0.4 mg capsule 0.4 mg PO BID #180 caps 07/08/23 atorvastatin 40 mg tablet 40 mg PO QDAY #90 tabs 08/29/23 omeprazole 40 mg capsule,delayed 40 mg PO QDAY #90 caps 09/15/23 release ipratropium 0.5 mg-albuterol 3 mg 3 ml inhalation QID #90 mL 12/15/23 (2.5 mg base)/3 mL nebulization soln metoprolol succinate 25 mg 25 mg PO QDAY #90 tabs 03/05/24 tablet,extended release 24 hr gabapentin 300 mg capsule 300 mg PO BID #60 caps 04/03/24 oxybutynin chloride 5 mg 5 mg PO QDAY #30 tabs 05/30/24 tablet,extended release 24 hr clobetasol 0.05 % topical cream 1 applic topical BID #30 grams 06/14/24 oxycodone-acetaminophen 5 mg-325 1 tab PO Q8H PRN pain #30 tabs 07/10/24 mg tablet furosemide 20 mg tablet (Lasix) 20 mg PO DAILY #7 tabs 07/13/24 potassium chloride 10 mEq 10 meq PO DAILY #7 caps 07/13/24 capsule,extended release Allergies Allergy/AdvReac Type Severity Reaction Status Date / Time Sulfa (Sulfonamide Allergy Intermediate Unknown Verified 07/13/24 14:16 Antibiotics) clarithromycin Allergy Unknown Unknown Verified 07/13/24 14:16 amoxicillin Allergy Verified 07/13/24 14:16 Review of Systems Status of ROS: Reports: 6 or more systems reviewed and unremarkable except as noted in History and below [facility] Medical History Rash ?R21 - Rash and other nonspecific skin eruption (ICD-10) (HFpEF) heart failure with preserved ejection fraction ?I50.30 - Unspecified diastolic (congestive) heart failure (ICD-10) Thrombocytopenia ?D69.6 - Thrombocytopenia, unspecified (ICD-10) CKD (chronic kidney disease) ?N18.9 - Chronic kidney disease, unspecified (ICD-10) Tobacco use ?Z72.0 - Tobacco use (ICD-10) Impingement syndrome of left shoulder ?M75.42 - Impingement syndrome of left shoulder (ICD-10) PAF (paroxysmal atrial fibrillation) ?I48.0 - Paroxysmal atrial fibrillation (ICD-10) COPD (chronic obstructive pulmonary disease) ?J44.9 - Chronic obstructive pulmonary disease, unspecified (ICD-10) History of vitamin D deficiency ?Z86.39 - Personal history of other endocrine, nutritional and metabolic disease (ICD-10) Low back pain with bilateral sciatica ?M54.42 - Lumbago with sciatica, left side (ICD-10) ?M54.41 - Lumbago with sciatica, right side (ICD-10) History of upper gastrointestinal bleeding ?Z87.19 - Personal history of other diseases of the digestive system (ICD-10) Stenosis of right carotid artery ?I65.21 - Occlusion and stenosis of right carotid artery (ICD-10) Cardiac pacemaker in situ ?Z95.0 - Presence of cardiac pacemaker (ICD-10) Hyperlipidemia ?E78.5 - Hyperlipidemia, unspecified (ICD-10) Hypertension ?I10 - Essential (primary) hypertension (ICD-10) GERD (gastroesophageal reflux disease) ?K21.9 - Gastro-esophageal reflux disease without esophagitis (ICD-10) BPH (benign prostatic hyperplasia) ?N40.0 - Benign prostatic hyperplasia without lower urinary tract symptoms (ICD-10) Coronary artery disease ?I25.10 - Atherosclerotic heart disease of [place] coronary artery without angina pectoris (ICD-10) Surgical History History of coronary artery bypass graft (2020) ?Z95.1 - Presence of aortocoronary bypass graft (ICD-10) History of permanent cardiac pacemaker placement ?Z95.0 - Presence of cardiac pacemaker (ICD-10) Social History What is your current living situation?: I presently have a place to live Problems where you live: no known problems In the past 12 months, utilities in danger of being shut off: no In past 12 months, lack of transportation kept you from medical appts, meetings, work, or getting things needed for daily living: no In the past 12 mos, have been you worried that your food would run out before you had money to buy more?: never true In the past 12 mos, the food you bought just didn't last and you didn't have money to buy more?: never true Smoking Status: Never smoker How often do you have a drink containing alcohol: never AUDIT-C Alcohol total score: 0 Non-prescribed substance use: denies use How often does anyone, including family, friends and others, physically hurt you : never How often does anyone, including family, friends and others, insult or talk down to you: never How often does anyone, including family, friends and others, threaten you with harm: never How often does anyone, including family, friends and others, scream or curse at you: never Exam Const: Vital Signs, click to edit/add: Vital Signs - 24 hr 07/13/24 14:20 07/13/24 14:22 07/13/24 14:32 Temperature 97.8 F Pulse Rate 66 Pulse Rate [Femora l] 76 Respiratory Rate 32 H Blood Pressure 174/112 H Blood Pressure [Ri ght Upper Arm] 161/70 H Pulse Oximetry 97 78 L 98 Oxygen Delivery Me thod Nasal Cannula Room Air Oxygen Flow Rate 3 07/13/24 14:33 07/13/24 14:45 07/13/24 14:47 Temperature Pulse Rate 62 63 61 Pulse Rate [Femora l] Respiratory Rate Blood Pressure 146/68 H Blood Pressure [Ri ght Upper Arm] Pulse Oximetry 97 98 98 Oxygen Delivery Me thod Oxygen Flow Rate 07/13/24 15:00 07/13/24 15:02 07/13/24 15:30 Temperature Pulse Rate 64 66 Pulse Rate [Femora l] Respiratory Rate 10 L 13 Blood Pressure 175/144 H Blood Pressure [Ri ght Upper Arm] Pulse Oximetry 98 99 96 Oxygen Delivery Me thod Nasal Cannula Oxygen Flow Rate 3 This 78-year-old male is alert, interactive, no apparent distress. He is 97% on 3 L nasal cannula, his typical oxygen he wears at home. Pupils equal round reactive, sclera clear, symmetric facial function. He will speak in complete sentences, neck thick, no masses, difficult to assess jugular venous distension. Has diminished lung sounds about detention up his lung field posteriorly, do not hear any crackles. He has no tachypnea, no accessory muscle use. CV regular rate and rhythm, no significant murmur, normal S1-S2. Abdomen obese but soft, nontender. He has about 3+ pitting edema above his socks, significant sock indentation bilaterally. Calves are nontender. Documenting provider has reviewed patient's vital signs: yes Course Course ED Course: Did review his chest x-ray from yesterday and compared it to 1 from 2023 and there certainly does seem to be congestive changes, increased pleural effusions. Will initiate IV dose Lasix. Patient is refusing updated chest x-ray today which we have from 1 yesterday and do not feel he is significantly decompensated. Will get some labs that were not done yesterday including proBNP, troponin. Reevaluation(s) Time of Reevaluation #1: 16:28 Reevaluation #1: Patient has had good response to the Lasix, states he has urinated 5 times. He is adamant that he does not want admission. He sees Dr. Wilcox in clinic. Will work to get him a follow-up visit next week. He does seem stable but does needed diuretic. Did discuss with him that typically we would put him in the hospital, monitor his output. He really does not want to do this. I will send in some Lasix for him to take daily, will supplement with some potassium, reviewed with him that the Lasix can deplete potassium. If he is worsening despite this outpatient management, will need to return for re-evaluation. He understands and on informed discussion, chooses to go home with outpatient management. Vital Signs Vital signs: Initial Vital Signs Pulse Oximetry 97 07/13/24 14:20 Oxygen Delivery Method Nasal Cannula 07/13/24 14:20 Oxygen Flow Rate 3 07/13/24 14:20 Vital Signs Pulse Oximetry 97 07/13/24 14:20 Oxygen Delivery Method Nasal Cannula 07/13/24 14:20 Oxygen Flow Rate 3 07/13/24 14:20 Temperature 97.8 F 07/13/24 14:22 Pulse Rate 66 07/13/24 15:02 Respiratory Rate 13 07/13/24 15:02 Blood Pressure 175/144 H 07/13/24 15:02 Pulse Oximetry 96 07/13/24 15:30 Oxygen Delivery Method Nasal Cannula 07/13/24 15:30 Oxygen Flow Rate 3 07/13/24 15:30 Medications Administered Medications: Discontinued Medications Generic Name Dose Route Start Last Admin Trade Name Freq PRN Reason Stop Dose Admin Furosemide 40 mg 07/13/24 14:58 07/13/24 15:14 Furosemide 10 Mg/Ml Inj IVP 07/13/24 14:59 40 mg ONCE ONE Administration MDM - SOB/Dyspnea Lab Data Attestation: I reviewed the patient's lab results. Labs: Lab Results 07/13/24 Range/Units 15:10 VBG pH 7.381 (7.32-7.43) VBG pCO2 63 H* (40-50) mmHG VBG pO2 34.8 (25-47) mmHG VBG HCO3 37 H (21-28) mmol/L Magnesium 1.8 (1.5-2.6) mg/dL Troponin I < 0.01 (0.01-0.04) ng/mL NT-Pro-B Natriuret Pep 1010 pg/mL ECG Data Attestation: I personally reviewed and interpreted this ECG as follows: (Ventricular paced rhythm, PVC seen. 65 beats per minute.) ECG interpretation date: 07/13/24 ECG interpretation time: 14:39 Prior ECG tracings: not available for review Discharge Plan Discharge Clinical Impression: Congestive heart failure Qualifiers: Heart failure type: unspecified Heart failure chronicity: acute on chronic Qualified Code(s): I50.9 - Heart failure, unspecified Patient Disposition: Home, Self-Care Condition: Stable Instructions: Heart Failure (ED), Heart Healthy Diet (ED) Additional Instructions: Follow up appointment scheduled July 18 at 2:00PM with Dr. Wilcox at the [facility]. Start oral Lasix tomorrow morning, take potassium as well. Try to follow heart healthy diet, follow handout. Low-sodium diet is recommended. If you notice increasing shortness of breath, difficulty breathing, worsening symptoms despite the Lasix, please return. Activity Level: Activity as Tolerated Prescriptions: New furosemide [Lasix] 20 mg tablet 20 mg PO DAILY Qty: 7 0RF potassium chloride 10 mEq capsule, extended release 10 meq PO DAILY Qty: 7 0RF No Action atorvastatin 40 mg tablet 40 mg PO QDAY Qty: 90 3RF cholecalciferol (vitamin D3) 50 mcg (2,000 unit) capsule 50 mcg PO QDAY mecobalamin (vitamin B12) 1,000 mcg lozenge 1,000 mcg PO QDAY Rx Instructions: allow to dissolve in mouth OR may chew lightly before swallowing aspirin [Adult Aspirin Regimen] 81 mg tablet,delayed release (DR/EC) 81 mg PO QDAY azelastine 137 mcg (0.1 %) spray,non-aerosol 1 spray intranasal BID PRN Rx Instructions: administer into each nostril nitroglycerin 0.4 mg tablet, sublingual 0.4 mg sublingual Q5M PRN Rx Instructions: do not exceed 3 doses per episode clobetasol 0.05 % cream 1 applic topical BID Qty: 30 3RF tamsulosin 0.4 mg capsule 0.4 mg PO BID Qty: 180 3RF omeprazole 40 mg capsule,delayed release(DR/EC) 40 mg PO QDAY Qty: 90 3RF ipratropium-albuterol 0.5 mg-3 mg(2.5 mg base)/3 mL solution for nebulization 3 ml inhalation QID Qty: 90 2RF metoprolol succinate 25 mg tablet extended release 24 hr 25 mg PO QDAY Qty: 90 1RF gabapentin 300 mg capsule 300 mg PO BID Qty: 60 4RF oxybutynin chloride 5 mg tablet extended release 24hr 5 mg PO QDAY Qty: 30 3RF oxycodone-acetaminophen 5-325 mg tablet 1 tab PO Q8H PRN (Reason: pain) Qty: 30 0RF Follow Up/Referrals: Damion Wilcox MD [Primary Care Provider] - 07/18/24 2:00 pm Stand Alone Forms: [facility] Info Instructions
[2024-07-13] MEDS: FUROSEMIDE 10 MG/ML inj 40 MG IVP (15:14)
[2024-07-13 15:18] LABS: HCO3 VBG 37 mmol/L (21-28); PO2 VBG 34.8 mmHG (25-47); pH VBG 7.381 (7.32-7.43)
[2024-07-13 15:43] LABS: Magnesium* 1.8 mg/dL (1.5-2.6)
[2024-07-13 16:00] LABS: NT Pro B Type NatriureticPept* 1010 pg/mL; Troponin I* < 0.01 ng/mL (0.01-0.04)
[2024-07-13 16:02] LABS: PCO2 VBG 63 mmHG (40-50)
== END 2024-07-13 16:45 | disposition home or self-care (01) ==
PROVIDERS: Emergency Provider Family Medicine; PCP Internal Medicine
DX: I50.30 Unspecified diastolic (congestive) heart failure (principal); J90 Pleural effusion, not elsewhere classified; I35.0 Nonrheumatic aortic (valve) stenosis; R60.9 Edema, unspecified; Z79.899 Other long term (current) drug therapy
CPT/HCPCS: 36415; 82803; 83735; 83880; 84484; 93005; 96374; 99284; J1938

== ENCOUNTER 2024-07-20 14:09 | Outpatient (CLI) | payer MEDICARE, MEDICAID, SELFPAY | END 2024-07-20 14:10 | disposition home or self-care (01) | LOC: RAD 14:11 | PROVIDERS: PCP Internal Medicine; Visit Provider Internal Medicine Cardiovascular Disease | DX: I50.30 Unspecified diastolic (congestive) heart failure (principal); Z95.0 Presence of cardiac pacemaker; I65.21 Occlusion and stenosis of right carotid artery; R53.1 Weakness | CPT/HCPCS: 93306 ==

== ENCOUNTER 2024-12-19 11:31 | Outpatient (CLI) | payer BC, SELFPAY | END 2024-12-19 11:32 | disposition home or self-care (01) | PROVIDERS: PCP Internal Medicine; Visit Provider Family Medicine | DX: R53.1 Weakness (principal) | CPT/HCPCS: A0998 ==

== ENCOUNTER 2024-12-19 12:45 | Outpatient (CLI) | payer BC, SELFPAY | END 2024-12-19 12:46 | disposition home or self-care (01) | LOC: AMB 12-20 14:46 | PROVIDERS: PCP Internal Medicine; Visit Provider Family Medicine | DX: I49.9 Cardiac arrhythmia, unspecified (principal) | CPT/HCPCS: A0425; A0427 ==

== ENCOUNTER 2024-12-19 13:04 | Emergency (ER) | payer BC, SELFPAY ==
[2024-12-19] VITALS (28 sets, daily range): BP systolic 100–156; BP diastolic 51–114; PULSE 46–70; RESP 13–35; TEMP 36.6; O2SAT 85–95
--- NOTE | 2024-12-19 13:21 | ED.GENADULT ---
HPI - General Adult General Time Seen by Provider: 13:21 Date Seen: 12/19/24 Chief complaint: Chest Pain Stated complaint: Weakness Time Seen by Provider: 12/19/24 13:10 Source: patient, EMS and RN notes reviewed Mode of arrival: EMS Limitations: no limitations History of Present Illness HPI narrative: This 79-year-old male is brought in by EMS for episode of chest pain. His symptoms initially started when he was at [employer] attempting to put air in his tires. He became weak and fell backwards. He did pushes life alert there and EMS came and assisted him back into his car. Patient declined EMS services, drove home. He then developed chest pain, called EMS again. EMS gave him nitroglycerin and aspirin prior to arrival, his symptoms have abated. He is complaining of numbness and weakness in both of his lower extremities but notes that this is his baseline. EMS reported that patient's heart rate ranged anywhere 30-70 beats per minute. Patient tells me that he was down on his left knee putting air in the tires, went to stand up, got the left foot underneath him, the right knee just buckled. He does state he has some pain in the right knee as well as the hip. He does note that he has arthritis. He has chronic low back pain issues but is not getting any sciatica type symptoms down the leg, he states he has had sciatica before. He does feel that he has some hip pain now, the knee hurt some now. He does describe buckling of this knee at times, states he is known to have arthritis. His left like has some swelling, he has had swelling, had vein harvest from the left leg. He notes over the last week that his legs have been more weak. He feels like the left leg is more swollen than baseline right now. He has underlying asthma, complains of some cough sometimes. He does feel short of breath. He is having chest pain at this time when I talked to him. He points to his right upper sternal border. He states he has been taking nitro weekly for about the last year. States it makes the chest pain go away. He denies any abdominal symptoms at this time. He had a CABG and pacemaker placed in 2020. He was seen by [facility] in Cardiology outreach here on August 30 this year. He is status post 5 vessel CABG, has COPD and had complete heart block status post pacemaker. Related Data Home Medications ?Medication ?Instructions ?Recorded ?Confirmed aspirin 81 mg tablet,delayed 81 mg PO QDAY 05/15/24 12/19/24 release (Adult Aspirin Regimen) Previous Rx's ?Medication ?Instructions ?Recorded ipratropium 0.5 mg-albuterol 3 mg 3 ml inhalation QID #90 mL 12/15/23 (2.5 mg base)/3 mL nebulization soln clobetasol 0.05 % topical cream 1 applic topical BID #30 grams 06/14/24 atorvastatin 40 mg tablet 40 mg PO QDAY #90 tabs 08/08/24 omeprazole 40 mg capsule,delayed 40 mg PO QDAY #90 caps 08/21/24 release gabapentin 300 mg capsule 300 mg PO BID #60 caps 09/04/24 metoprolol succinate 25 mg 25 mg PO QDAY #90 tabs 09/04/24 tablet,extended release 24 hr oxybutynin chloride 5 mg 5 mg PO QDAY #30 tabs 09/25/24 tablet,extended release 24 hr nitroglycerin 0.4 mg sublingual 0.4 mg sublingual Q5M PRN chest 10/02/24 tablet pain #30 tabs tamsulosin 0.4 mg capsule 0.4 mg PO BID #180 caps 10/02/24 furosemide 20 mg tablet (Lasix) 20 mg PO DAILY #30 tabs 11/01/24 potassium chloride 10 mEq 10 meq PO DAILY #30 caps 11/01/24 capsule,extended release oxycodone-acetaminophen 5 mg-325 1 tab PO Q8H PRN pain #30 tabs 12/10/24 mg tablet Allergies Allergy/AdvReac Type Severity Reaction Status Date / Time Sulfa (Sulfonamide Allergy Intermediate Unknown Verified 12/19/24 13:21 Antibiotics) clarithromycin Allergy Unknown Unknown Verified 12/19/24 13:21 amoxicillin Allergy Verified 12/19/24 13:21 Review of Systems Status of ROS: Reports: 6 or more systems reviewed and unremarkable except as noted in History and below [facility] Medical History Rash ?R21 - Rash and other nonspecific skin eruption (ICD-10) (HFpEF) heart failure with preserved ejection fraction ?I50.30 - Unspecified diastolic (congestive) heart failure (ICD-10) Thrombocytopenia ?D69.6 - Thrombocytopenia, unspecified (ICD-10) CKD (chronic kidney disease) ?N18.9 - Chronic kidney disease, unspecified (ICD-10) Tobacco use ?Z72.0 - Tobacco use (ICD-10) Impingement syndrome of left shoulder ?M75.42 - Impingement syndrome of left shoulder (ICD-10) PAF (paroxysmal atrial fibrillation) ?I48.0 - Paroxysmal atrial fibrillation (ICD-10) COPD (chronic obstructive pulmonary disease) ?J44.9 - Chronic obstructive pulmonary disease, unspecified (ICD-10) History of vitamin D deficiency ?Z86.39 - Personal history of other endocrine, nutritional and metabolic disease (ICD-10) Low back pain with bilateral sciatica ?M54.42 - Lumbago with sciatica, left side (ICD-10) ?M54.41 - Lumbago with sciatica, right side (ICD-10) History of upper gastrointestinal bleeding ?Z87.19 - Personal history of other diseases of the digestive system (ICD-10) Stenosis of right carotid artery ?I65.21 - Occlusion and stenosis of right carotid artery (ICD-10) Cardiac pacemaker in situ ?Z95.0 - Presence of cardiac pacemaker (ICD-10) Hyperlipidemia ?E78.5 - Hyperlipidemia, unspecified (ICD-10) Hypertension ?I10 - Essential (primary) hypertension (ICD-10) GERD (gastroesophageal reflux disease) ?K21.9 - Gastro-esophageal reflux disease without esophagitis (ICD-10) BPH (benign prostatic hyperplasia) ?N40.0 - Benign prostatic hyperplasia without lower urinary tract symptoms (ICD-10) Coronary artery disease ?I25.10 - Atherosclerotic heart disease of [place] coronary artery without angina pectoris (ICD-10) Surgical History History of coronary artery bypass graft (2020) ?Z95.1 - Presence of aortocoronary bypass graft (ICD-10) History of permanent cardiac pacemaker placement ?Z95.0 - Presence of cardiac pacemaker (ICD-10) Social History What is your current living situation?: I presently have a place to live Problems where you live: pests, such as bugs, ants, or mice, mold, lack of heat and water leaks In the past 12 months, utilities in danger of being shut off: no In past 12 months, lack of transportation kept you from medical appts, meetings, work, or getting things needed for daily living: no In the past 12 mos, have been you worried that your food would run out before you had money to buy more?: never true In the past 12 mos, the food you bought just didn't last and you didn't have money to buy more?: never true Smoking Status: Never smoker How often do you have a drink containing alcohol: never AUDIT-C Alcohol total score: 0 Non-prescribed substance use: denies use How often does anyone, including family, friends and others, physically hurt you: never How often does anyone, including family, friends and others, insult or talk down to you: never How often does anyone, including family, friends and others, threaten you with harm: never How often does anyone, including family, friends and others, scream or curse at you: never Health Related Social Needs: Inadequate housing (Z59.1) Exam Const: Vital Signs, click to edit/add: Vital Signs - 24 hr 12/19/24 13:15 12/19/24 13:20 12/19/24 13:21 Temperature 97.9 F Pulse Rate 60 61 Pulse Rate [Pulse Oximeter] 70 Respiratory Rate 20 24 18 Blood Pressure 118/54 L Blood Pressure [Ri ght Upper Arm] 136/65 Pulse Oximetry 90 85 L 92 Oxygen Delivery Me thod Room Air 12/19/24 13:22 12/19/24 13:27 12/19/24 13:30 Temperature Pulse Rate 57 L 61 66 Pulse Rate [Pulse Oximeter] Respiratory Rate 22 21 19 Blood Pressure 111/60 122/56 L Blood Pressure [Ri ght Upper Arm] Pulse Oximetry 90 88 92 Oxygen Delivery Me thod 12/19/24 13:32 12/19/24 13:33 12/19/24 13:37 Temperature Pulse Rate 63 61 Pulse Rate [Pulse Oximeter] Respiratory Rate 35 H 30 H Blood Pressure 130/71 117/51 L Blood Pressure [Ri ght Upper Arm] Pulse Oximetry 95 87 L 91 Oxygen Delivery Me thod 12/19/24 14:02 12/19/24 14:04 12/19/24 14:07 Temperature Pulse Rate 46 L 63 61 Pulse Rate [Pulse Oximeter] Respiratory Rate 23 16 Blood Pressure 106/53 L 100/66 Blood Pressure [Ri ght Upper Arm] Pulse Oximetry 90 90 90 Oxygen Delivery Me thod 12/19/24 14:12 12/19/24 14:15 12/19/24 14:17 Temperature Pulse Rate 61 61 62 Pulse Rate [Pulse Oximeter] Respiratory Rate 28 H 29 H 28 H Blood Pressure 123/55 L 129/88 Blood Pressure [Ri ght Upper Arm] Pulse Oximetry 93 87 L 91 Oxygen Delivery Me thod 12/19/24 14:22 12/19/24 14:28 12/19/24 14:30 Temperature Pulse Rate 61 60 60 Pulse Rate [Pulse Oximeter] Respiratory Rate 15 23 20 Blood Pressure 137/62 120/54 L Blood Pressure [Ri ght Upper Arm] Pulse Oximetry 93 90 92 Oxygen Delivery Me thod 12/19/24 14:32 12/19/24 14:45 12/19/24 15:00 Temperature Pulse Rate 68 Pulse Rate [Pulse Oximeter] Respiratory Rate 26 H 13 21 Blood Pressure 148/114 H Blood Pressure [Ri ght Upper Arm] Pulse Oximetry 93 Oxygen Delivery Me thod 12/19/24 15:15 12/19/24 15:30 12/19/24 15:45 Temperature Pulse Rate Pulse Rate [Pulse Oximeter] Respiratory Rate 23 25 H 28 H Blood Pressure Blood Pressure [Ri ght Upper Arm] Pulse Oximetry Oxygen Delivery Me thod 12/19/24 16:00 12/19/24 16:06 12/19/24 16:15 Temperature Pulse Rate 59 L 68 Pulse Rate [Pulse Oximeter] Respiratory Rate 26 H 13 13 Blood Pressure 156/76 H Blood Pressure [Ri ght Upper Arm] Pulse Oximetry 91 91 Oxygen Delivery Me thod 12/19/24 16:30 Temperature Pulse Rate Pulse Rate [Pulse Oximeter] Respiratory Rate 30 H Blood Pressure Blood Pressure [Ri ght Upper Arm] Pulse Oximetry Oxygen Delivery Me thod This 79-year-old male is alert, interactive, no apparent distress, sitting in the bed in exam room 6. He is pleasant, conversive, speech is normal. Wearing glasses, sclera clear, conjugate gaze, symmetrical facial function. Neck without any masses or adenopathy. He does have some bibasilar crackles both lower lungs posteriorly, elsewhere clear without wheezing crackles, no tachypnea, no accessory muscle use. He has a well-healed sternotomy scar, he states ?ouch? when I touch his right upper lateral sternal border. CV is regular, he has a 1 to 2/6 systolic murmur heard right sternal border, normal S1-S2. Abdomen is soft, nontender, nondistended, no organomegaly, rebound or guarding. He has the sock line on the right leg, above this he has about 2 to 3+ pitting edema. Does states his calves are little sore, does bring up that he gets cramps in his legs at night at this point. He has no edema in his right leg. Seems to have normal sensation over the anterior legs, has shoes on at this time. He states he can only lift his right leg just couple inches, his right knee has no effusion but complains of pain with range of motion. Complains of pain is hip but seems to have good range of motion. He demonstrates lifting the left leg out of the bed without any difficulty. Documenting provider has reviewed patient's vital signs: yes Course Course ED Course: Patient has a multitude of complaints and difficult to potentially tile these together. He was stating his legs are weak but it seems like he might be buckling from the right knee. Will look at x-rays of his right hip in his right knee. May need to consider imaging of his back but at this time the exam really does not seem to be concerning for bilateral leg weakness. He does have edema in the left leg but this was his vein harvest leg. Will consider thromboembolic disease, have a screening D-dimer. He may need ultrasound of this left leg if the D-dimer is elevated. Will get a portable chest x-ray. Will look at troponins for ischemic disease. Chest x-ray should certainly let us know if there is any significant congestive heart failure. He will have a full complement of labs. Reevaluation(s) Time of Reevaluation #1: 15:03 Reevaluation #1: Have reviewed with patient that his initial heart enzyme is normal. Need to do a follow-up 1. We also discussed that we are going to do a lumbar CT. In looking in his records, he has had a history of back pain and bilateral sciatica. I do think we need to look at the lumbar spine to ensure no significant spinal stenosis. At home, he does have a walker, cane as well as electric scooter. He states his walking is poor. His proBNP is mildly up at 2150. In June this was 1010. Will give him a dose of 20 mg IV Lasix now. He definitely is likely in some mild fluid overload by the blunting of the costophrenic angles on the chest x-ray/mild pleural effusions, increased lower extremity edema and oxygenation at 90%. He really is not tachypneic, seems to be quite comfortable and is not overtly symptomatic with shortness of breath here while in the ED at this time. Time of Reevaluation #2: 15:41 Reevaluation #2: D-dimer is elevated outside of age limits. Will order ultrasound of his left lower extremity. Time of Reevaluation #3: 17:04 Reevaluation #3: Did provide copies of his lumbar CT and on his ultrasound of his leg. There is no DVT. His lumbar spine has some degenerative changes but nothing acute such as spinal stenosis, etc., that would require any emergent further follow-up at this time. He feels comfortable discharging home. We did discuss increasing his Lasix for the next couple of days and then follow up in clinic. He does have some mild apparent fluid overload but does not require hospitalization. We did discuss this chest wall pain is very definitely reproducible with palpation of his chest wall, that is not cardiac. Plan will be to discharge to home at this time for outpatient follow-up. Vital Signs Vital signs: Initial Vital Signs Temperature 97.9 F 12/19/24 13:15 Temperature Source Temporal Artery Scan 12/19/24 13:15 Pulse Rate 70 12/19/24 13:15 Respiratory Rate 20 12/19/24 13:15 Blood Pressure 136/65 12/19/24 13:15 Blood Pressure Mean 88 12/19/24 13:15 Pulse Oximetry 90 12/19/24 13:15 Oxygen Delivery Method Room Air 12/19/24 13:15 Vital Signs Temperature 97.9 F 12/19/24 13:15 Pulse Rate 70 12/19/24 13:15 Respiratory Rate 20 12/19/24 13:15 Blood Pressure 136/65 12/19/24 13:15 Pulse Oximetry 90 12/19/24 13:15 Oxygen Delivery Method Room Air 12/19/24 13:15 Temperature 97.9 F 12/19/24 13:15 Pulse Rate 68 12/19/24 16:15 Respiratory Rate 30 H 12/19/24 16:30 Blood Pressure 156/76 H 12/19/24 16:06 Pulse Oximetry 91 12/19/24 16:15 Oxygen Delivery Method Room Air 12/19/24 13:15 Medications Administered Medications: Discontinued Medications Generic Name Dose Route Start Last Admin Trade Name Cindy PRN Reason Stop Dose Admin Furosemide 20 mg 12/19/24 15:12 12/19/24 16:05 Furosemide 10 Mg/Ml Inj IVP 12/19/24 15:13 20 mg ONCE ONE Administration Medical Decision Making Lab Data Lab results reviewed: Yes I reviewed the patient's lab results Labs: Lab Results 12/19/24 12/19/24 Range/Units 14:08 16:09 WBC 8.23 (4.50-11.00) K/uL RBC 3.64 L (4.30-5.90) m/uL Hgb 11.9 L (13.5-17.5) gm/dL Hct 35.9 L (37.0-53.0) % MCV 99 (80-100) fL MCH 33 (26-34) pg MCHC 33 (32-36) gm/dL RDW Coeff of Link 13.0 (11.5-15.5) % Plt Count 148 (140-440) K/uL Neut % (Auto) 68.1 (42.0-72.0) % Lymph % (Auto) 19.7 L (20-44) % [place] % (Auto) 10.1 (0.0-11.0) % Eos % (Auto) 1.6 (0.0-7.0) % Baso % (Auto) 0.4 (0.0-3.0) % Neut # (Auto) 5.61 (1.7-7.0) K/uL Lymph # (Auto) 1.60 (0.90-2.90) K/uL [place] # (Auto) 0.80 (0.00-0.90) K/UL Eos # (Auto) 0.13 (0.00-0.50) K/uL Baso # (Auto) 0.03 (0.00-0.30) K/uL Abs Immat Gran (auto) 0.01 (0.00-0.30) K/uL Imm/Tot Granulo (auto) 0.1 % D-Dimer Quant (PE/DVT) 1.68 H (0.00-0.50) ug/ml VBG pH 7.463 H (7.32-7.43) VBG pCO2 39 L (40-50) mmHG VBG pO2 59.4 H (25-47) mmHG VBG HCO3 28 (21-28) mmol/L Sodium 135 (135-149) mmol/L Potassium 4.2 (3.6-5.1) mmol/L Chloride 100 (96-114) mmol/L Carbon Dioxide 28 (20-32) mmol/L Anion Gap 7 (7-15) mEq/L BUN 27 (7-30) mg/dL Creatinine 1.2 (0.5-1.5) mg/dL Estimated GFR 61 ml/min Glucose 114 (60-115) mg/dL Lactate 1.8 (0.5-1.9) mmol/L Calcium 8.7 (8.4-10.6) mg/dL Magnesium 1.8 (1.5-2.6) mg/dL Total Bilirubin 0.5 (0.1-1.5) mg/dL AST 28 (12-35) U/L ALT 18 (4-50) U/L Alkaline Phosphatase 81 (40-150) U/L Troponin I < 0.01 (0.01-0.04) ng/mL C-Reactive Protein 0.8 (0.5-1.0) mg/dL NT-Pro-B Natriuret Pep 2150 H (See Note) pg/mL Total Protein 6.5 (6.0-8.3) g/dL Albumin 3.7 (3.3-5.0) g/dL POC Troponin I 0.01 0.01 (0.01-0.04) ng/ml Imaging Data Chest x-ray: Attestation: I have reviewed the pertinent imaging results. My impression: Blunting of the costophrenic angles likely due to small pleural effusions. No overt congestive heart failure or infiltrate on my preliminary review. Radiologist's impression: Patient: MARIA M YAÑEZ Facility:[facility] Patient ID:?[id number] Site Patient ID:?[id number]. Site :?1945 Study:?XRay-Chest 1 VIEW-12/19/2024 2:09:20 PM Ordering Physician:Rosalino Welsh Final Report: Indication: Chest pain, shortness of breath. Technique: Chest 1 view. Comparison: Chest radiograph 07/12/2024. Findings/Impression: Cardiovascular and mediastinum: Unchanged cardiomediastinal silhouette. Prior CABG. Similar position of left-sided pacemaker electrodes. Lungs and pleural space: Similar small bilateral pleural effusions with adjacent atelectasis. No pneumothorax. Bones and soft tissues: No acute findings. Dictated by Haylie Fuller MD @ 12/19/2024 2:15:50 PM (Electronic Signature) XR right hip: Attestation: I have reviewed the pertinent imaging results. My impression: I do not appreciate any acute fracture. Maybe some changes of some mild arthritis but await Radiology over-read. Radiologist's impression: Patient: MARIA M YAÑEZ Facility:?[facility] Patient ID:?[id number] Site Patient ID:?[id number]. Site :?[id number] Study:?XRay-Hip Right 2 VIEW-12/19/2024 2:09:55 PM Ordering Physician:Rosalino Welsh Final Report: Indication: Leg pain, leg giving out. Technique: Right hip 3 views. Comparison: None. Findings: Bones: No fracture or dislocation. No worrisome osseous lesion. Scattered enthesopathy of the hips and pelvis. Joint spaces: Mild bilateral femoroacetabular joint osteoarthrosis. Mild bilateral sacroiliac joint arthrosis. Soft tissues: Atherosclerotic vascular calcifications. Otherwise normal soft tissues and intrapelvic structures. Impression: No fracture or dislocation. Mild degenerative changes of the hips and sacroiliac joints. Dictated by Pradeep Garcia MD @ 12/19/2024 2:17:03 PM (Electronic Signature) XR right knee: Attestation: I have reviewed the pertinent imaging results. My impression: No significant change of the knee joint on my preliminary review. Radiologist's impression: Patient: MARIA M YAÑEZ Facility:?[facility] Patient ID:?[id number] Site Patient ID:?[id number]. Site :?1945 Study:?XRay-Knee Right 3 VIEW-12/19/2024 2:10:21 PM Ordering Physician:Rosalino Welsh Final Report: Indication: Knee buckling Technique: Three views of the right knee. Comparison: None Findings/Impression: No acute fracture or malalignment. No knee joint effusion. Slight medial compartment joint space narrowing; otherwise, no additional osteoarthritic degenerative changes. No suspicious osseous lesions. The soft tissues are without acute abnormality. 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 Recommend correlation with history and prior imaging if available; otherwise, this can be further assessed with a nonurgent/outpatient ultrasound or CT angiogram. Dictated by Jass Ardon MD @ 12/19/2024 2:21:52 PM (Electronic Signature) Venous US: Attestation: I have reviewed the pertinent imaging results. Radiologist's impression: Patient: MARIA M YAÑEZ Facility:?[facility] Patient ID:?[id number] Site Patient ID:?[id number]. Site :?1945 Study:?US-Extremity Left LEV LT-12/19/2024 4:26:43 PM Ordering Physician:?Swati Welsh Final Report: INDICATION: Left leg swelling TECHNIQUE: Ultrasound venous duplex lower left extremity. Compression venous exam was performed using mujica-scale, color Doppler, and spectral Doppler analysis. COMPARISON: None. FINDINGS: Sonographic imaging demonstrates the left common femoral, deep femoral, superficial femoral, popliteal, posterior tibial and greater saphenous and the contralateral right common femoral veins to be fully compressible with normal color Doppler blood flow. IMPRESSION: Normal left lower extremity venous ultrasound, no sign of deep venous thrombosis. Dictated by Tj Ribera MD @ 12/19/2024 4:28:20 PM (Electronic Signature) CT lumbar spine: Attestation: I have reviewed the pertinent imaging results. Radiologist's impression: Patient: MARIA M YAÑEZ Facility:?[facility] Patient ID:?[id number] Site Patient ID:?[id number]. Site :?1945 Study:?CT-Spine Lumbar WITHOUT-12/19/2024 4:44:49 PM Ordering Physician:Rosalino Welsh Final Report: INDICATION: Bilateral leg weakness, legs giving out TECHNIQUE: CT lumbar spine without contrast. COMPARISON: None. FINDINGS: Vertebrae: No spondylolisthesis. No acute fracture. Chronic appearing concavity of multiple superior and inferior endplates without significant vertebral body height loss. The bones appear demineralized. Discs and facet joints: There is moderate multilevel degenerative disc disease with prominent anterior osteophytes. There is [id number] multilevel facet arthropathy. Extraspinal findings: Bilateral pleural effusions, partially imaged. Atherosclerotic calcifications. Degenerative changes of the bilateral sacroiliac joints. IMPRESSION: No acute abnormality of the lumbar spine. Moderate multilevel degenerative changes. Please note that all CT scans at this facility use dose modulation, iterative reconstruction, and/or weight-based dosing when appropriate to reduce radiation dose to as low as reasonably achievable. Dictated by Haylie Fuller MD @ 12/19/2024 4:50:50 PM (Electronic Signature) ECG Data Attestation: I personally reviewed and interpreted this ECG as follows: (AV dual paced rhythm, PVCs seen. Rate is 60 beats per minute.) Prior ECG tracings: available for review (Compared to EKG from 07/13/2024, no significant change.) Discharge Plan Discharge Clinical Impression: Gait abnormality Congestive heart failure Qualifiers: Heart failure type: unspecified Heart failure chronicity: acute on chronic Qualified Code(s): I50.9 - Heart failure, unspecified Chest pain Qualifiers: Chest pain type: unspecified Qualified Code(s): R07.9 - Chest pain, unspecified Patient Disposition: Home, Self-Care Condition: Stable Instructions: Heart Failure (ED), Peripheral Neuropathy (ED), Chest Wall Pain (ED) Additional Instructions: Recommend taking 40 mg of furosemide tomorrow morning an Tuesday morning, this will be 2 pills of your 20 mg tablets. Then go back to 20 mg in the morning. You need to schedule a follow-up in clinic with your primary care provider within the next week for recheck. I suspect your gait complaints are stemming from peripheral neuropathy. You can talk to your primary care provider about this further. Try to minimize sodium in your diet, this helps prevent congestive heart failure/fluid overload. If you feel you are worsening, develops further concerns, please seek re-evaluation. The chest pain that you have that can be palpated in the chest wall is not cardiac, that is most definitely chest wall pain. Activity Level: Activity as Tolerated Discharge Diet: Heart Healthy (2 gm sodium, low fat) Prescriptions: No Action aspirin [Adult Aspirin Regimen] 81 mg tablet,delayed release (DR/EC) 81 mg PO QDAY clobetasol 0.05 % cream 1 applic topical BID Qty: 30 3RF ipratropium-albuterol 0.5 mg-3 mg(2.5 mg base)/3 mL solution for nebulization 3 ml inhalation QID Qty: 90 2RF atorvastatin 40 mg tablet 40 mg PO QDAY Qty: 90 3RF omeprazole 40 mg capsule,delayed release(DR/EC) 40 mg PO QDAY Qty: 90 3RF gabapentin 300 mg capsule 300 mg PO BID Qty: 60 4RF metoprolol succinate 25 mg tablet extended release 24 hr 25 mg PO QDAY Qty: 90 1RF oxybutynin chloride 5 mg tablet extended release 24hr 5 mg PO QDAY Qty: 30 3RF tamsulosin 0.4 mg capsule 0.4 mg PO BID Qty: 180 0RF nitroglycerin 0.4 mg tablet, sublingual 0.4 mg sublingual Q5M PRN (Reason: chest pain) Qty: 30 0RF Rx Instructions: do not exceed 3 doses per episode furosemide [Lasix] 20 mg tablet 20 mg PO DAILY Qty: 30 2RF potassium chloride 10 mEq capsule, extended release 10 meq PO DAILY Qty: 30 2RF oxycodone-acetaminophen 5-325 mg tablet 1 tab PO Q8H PRN (Reason: pain) Qty: 30 0RF Follow Up/Referrals: Damion Wilcox MD [Primary Care Provider, Internal Medicine] [facility] Instructions Procedures ABG Interpretation ABG Results: 12/19/24 14:08 VBG pH 7.463 H VBG pCO2 39 L VBG pO2 59.4 H VBG HCO3 28
--- NOTE | 2024-12-19 13:32 | CRLHL7_ITS ---
For Patients: As a result of the Cures Act, medical imaging exams and procedure reports are released immediately into your electronic medical record. You may view this report before your referring provider. If you have questions, please contact your health care provider. Indication: Chest pain, shortness of breath. Technique: Chest 1 view. Comparison: Chest radiograph 07/12/2024. Findings/Impression: Cardiovascular and mediastinum: Unchanged cardiomediastinal silhouette. Prior CABG. Similar position of left-sided pacemaker electrodes. Lungs and pleural space: Similar small bilateral pleural effusions with adjacent atelectasis. No pneumothorax. Bones and soft tissues: No acute findings. Dictated by Haylie Fuller MD @ 12/19/2024 2:15:50 PM (Electronically Signed)
--- NOTE | 2024-12-19 13:36 | CRLHL7_ITS ---
For Patients: As a result of the Century Cures Act, medical imaging exams and procedure reports are released immediately into your electronic medical record. You may view this report before your referring provider. If you have questions, please contact your health care provider. Indication: Knee buckling Technique: Three views of the right knee. Comparison: None Findings/Impression: No acute fracture or malalignment. No knee joint effusion. Slight medial compartment joint space narrowing; otherwise, no additional osteoarthritic degenerative changes. No suspicious osseous lesions. The soft tissues are without acute abnormality. 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 Recommend correlation with history and prior imaging if available; otherwise, this can be further assessed with a nonurgent/outpatient ultrasound or CT angiogram. Dictated by Jass Ardon MD @ 12/19/2024 2:21:52 PM (Electronically Signed)
--- NOTE | 2024-12-19 13:36 | CRLHL7_ITS ---
For Patients: As a result of the Cures Act, medical imaging exams and procedure reports are released immediately into your electronic medical record. You may view this report before your referring provider. If you have questions, please contact your health care provider. Indication: Leg pain, leg giving out. Technique: Right hip 3 views. Comparison: None. Findings: Bones: No fracture or dislocation. No worrisome osseous lesion. Scattered enthesopathy of the hips and pelvis. Joint spaces: Mild bilateral femoroacetabular joint osteoarthrosis. Mild bilateral sacroiliac joint arthrosis. Soft tissues: Atherosclerotic vascular calcifications. Otherwise normal soft tissues and intrapelvic structures. Impression: No fracture or dislocation. Mild degenerative changes of the hips and sacroiliac joints. Dictated by Pradeep Garcia MD @ 12/19/2024 2:17:03 PM (Electronically Signed)
[2024-12-19 14:20] LABS: Hematocrit* 35.9 % (37.0-53.0); Hemoglobin* 11.9 gm/dL (13.5-17.5); Immature Granulocytes Abs Auto 0.01 K/uL (0.00-0.30); Immature Granulocytes Pct Auto 0.1 %; Mean Corpuscular HGB Conc 33 gm/dL (32-36); Mean Corpuscular Hemoglobin 33 pg (26-34); Mean Corpuscular Volume 99 fL (80-100); RDW Coefficient of Variation % 13.0 % (11.5-15.5); Red Blood Count* 3.64 m/uL (4.30-5.90); White Blood Count* 8.23 K/uL (4.50-11.00)
[2024-12-19 14:21] LABS: HCO3 VBG 28 mmol/L (21-28); Lactate* 1.8 mmol/L (0.5-1.9); PCO2 VBG 39 mmHG (40-50); PO2 VBG 59.4 mmHG (25-47); pH VBG 7.463 (7.32-7.43)
[2024-12-19 14:25] LABS: Lymphocytes Absolute Auto 1.60 K/uL (0.90-2.90); Slide Review Reflex No
[2024-12-19 14:35] LABS: Albumin* 3.7 g/dL (3.3-5.0); Chloride* 100 mmol/L (96-114); Sodium* 135 mmol/L (135-149)
--- OUTSIDE RECORDS SUMMARY | 2024-12-19 14:35 | XMS_ITS | Encounter Summary ---
Author Organization [facility] Address [address] [place] [address] Care Team Providers Care Financial Services Technician Name Role Phone Needs PcpAmarjit Primary Care Provider Unav ailable Encounter Details Date Type Department Care Team (Late st Contact Info) Description 12/13/2019 Lab Requisition [facility] [address] [place], [place] [address] Clinician, Not Found, [place] [address] Encounter for surgical aftercare following surgery on the circulatory system Social History Tobacco Use Types Packs/Day Years Used Date Smoking Tobacco: Former Cigarettes Q uit: 04/20/2005 Alcohol Use Standard Drinks/Week Comments Not Asked 0 (1 standard drink = 0.6 oz pur e alcohol) Sex and Gender Information Value Date Recorded Sex Assigned at Not on file Legal Sex Male 6:39 AM CDT Gender Identity Not on file Sexual Orientation [...] - 10.5 x10(9)/L 12/14/2019 12:51 PM CDT [facility] RBC 2.85(L) 4.32 - 5.72 x10(12)/L 12/14/2019 12:51 PM CDT [facility] Hemoglobin 9.3(L) 13.5 - 17.5 g/dL 12/14/2019 12:51 PM CDT [facility] HCT 30.3(L) 38.8 - 50.0 % 12/14/2019 12:51 PM CDT [facility] MCV 106.3(H) 80.0 - 100.0 fL 12/14/2019 12:51 PM CDT [facility] MCH 32.6 27.6 - 33.3 pg 12/14/2019 12:51 PM CDT [facility] MCHC 30.7(L) 31.5 - 35.2 g/dL 12/14/2019 12:51 PM CDT [facility] RDW 14.5 11.9 - 15.5 % 12/14/2019 12:51 PM CDT [facility] Platelets 358 150 - 450 x10(9)/L 12/14/2019 12:51 PM CDT [facility] Automated NRBC 0 <=0 /100 WBC 12/14/2019 12:51 PM CDT [facility] Neutrophil Absolute 6.1 1.7 - 7.0 10(9)/L 12/14/2019 12:51 PM CDT [facility] Lymphocyte Absolute 1.3 1.0 - 4.8 10(9)/L 12/14/2019 12:51 PM CDT [facility] Monocyte Absolute 0.7 0.2 - 0.9 10(9)/L 12/14/2019 12:51 PM CDT [facility] Eosinophil Absolute 0.1 0.0 - 0.5 10(9)/L 12/14/2019 12:51 PM CDT [facility] Basophil Absolute 0.1 0.0 - 0.3 10(9)/L 12/14/2019 12:51 PM CDT [facility] Immature Granulocyte % 0.5 0.0 - 0.5 % 12/14/2019 12:51 PM CDT [facility] Blood Venipuncture / Unknown 12/14/2019 7:10 AM CDT 12/14/2019 12:04 PM CDT us Not Found Clinician LAB_1 Final Res ult [facility] [address] * (ABNORMAL) Comp Metabolic Panel (12/14/2019 7:10 AM CDT) Sodium 136 136 - 145 mmol/L 12/14/2019 1:15 PM CDT [facility] Potassium 4.2 3.5 - 5.1 mmol/L 12/14/2019 1:15 PM CDT [facility] Chloride 101 98 - 109 mmol/L 12/14/2019 1:15 PM CDT [facility] CO2 27 20 - 29 mmol/L 12/14/2019 1:15 PM CDT [facility] Anion Gap 8 7 - 16 mmol/L 12/14/2019 1:15 PM CDT [facility] Calcium 8.8 8.4 - 10.4 mg/dL 12/14/2019 1:15 PM CDT [facility] BUN 16 7 - 26 mg/dL 12/14/2019 1:15 PM CDT [facility] Creatinine 1.05 0.73 - 1.18 mg/dL 12/14/2019 1:15 PM CDT [facility] GFR, Estimated >60 >60 mL/min/1.7 3m2 12/14/2019 1:15 PM CDT [facility] Alkaline Phosphatase 123 40 - 150 U/L 12/14/2019 1:15 PM CDT [facility] AST (SGOT) 23 10 - 40 U/L 12/14/2019 1:15 PM CDT [facility] ALT (SGPT) 29 0 - 55 U/L 12/14/2019 1:15 PM CDT [facility] Bilirubin, Total 0.5 0.2 - 1.2 mg/dL 12/14/2019 1:15 PM CDT [facility] Protein, Total 6.1(L) 6.4 - 8.3 g/dL 12/14/2019 1:15 PM CDT [facility] Albumin 3.1(L) 3.5 - 5.0 g/dL 12/14/2019 1:15 PM CDT [facility] Glucose 95 70 - 100 mg/dL 12/14/2019 1:15 PM CDT [facility] Comment:The given reference range is for the fasting state. Non-fasting reference range for glucose is 70 - 180 mg/dL. Hours Fasting Unknown 12/14/2019 1:15 PM CDT [facility] Blood Venipuncture / Unknown 12/14/2019 7:10 AM CDT 12/14/2019 12:02 PM CDT us Not Found Clinician LAB_1 Final Res ult [facility] [address] [place], [place] [address] documented in this encounter Visit Diagnoses Diagnosis [...] documented as of this encounter Care Teams Financial Services Technician Relationship Specialty Start Date End Date Needs Amarjit Pittman [address] [place] [id number] PCP - General 01/06/24 documented as of this encounter
--- OUTSIDE RECORDS SUMMARY | 2024-12-19 14:35 | XMS_ITS | Clinical Summary ---
Author Organization [facility] Address [address] [place] [address] Care Team Providers Care Shopper'S Aide Name Role Phone None Primary Care Provider Unavailabl e Allergies Active Allergy Reactions Criticality Noted Date Comments Clarithromycin 02/24/2004 Sulfa (Sulfonamide Antibiotics) [facility] Medications ALBUTEROL 90 MCG/ACTUATION AEROSOL INHALER 2 puffs by mouth every 4 to 6 hours as needed for wheezing 1 1 6 Active SINGULAIR 10 MG TAB take 1 tablet (10mg) by oral route once daily in the evening 30 3 6 Active ATROVENT 18 MCG/ACTUATION AEROSOL INHALER inhale 2 puffs (36mcg) by inhalation route 4 times per day 1 3 6 Active ALBUTEROL SULFATE 0.083 % SOLN FOR INHALATION 1 prefill via nebulizer every 4 to 6 hours as needed 25 1 6 Active aspirin enteric coated 81 mg tablet Take 1 Tablet (81 mg) by mouth once daily with a meal. Do not crush or chew. 5 Active atorvastatin 40 mg tablet Take 1 Tablet (40 mg) by mouth once daily. 5 Active furosemide 20 mg tablet Take 1 Tablet (20 mg) by mouth once daily in the morning. 5 Active potassium chloride 10 mEq Controlled-rele ase capsule Take 1 Capsule (10 mEq) by mouth two times daily with meals. 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 Gender Identity Not on file Sexual Orientation Not on file Obstetrics History Last Filed Vital Signs Vital Sign Reading Time Taken Comments Blood Pressure 154/90 06/25/2005 10:30 AM CDT Pulse 72 06/25/2005 10:30 AM CDT Temperature 35.6 C (96.1 F) 09/02/2011 12:00 AM CDT Respiratory Rate 36 06/15/2005 9:45 AM CDT Oxygen Saturation 93% 06/18/2005 10: 00 AM CDT Inhaled Oxygen Concentration - - Weight 120.5 kg (265 lb 9.6 oz) 012 12:00 AM CDT Height 177.8 cm (5' 10) 09/02/2011 12: 00 AM CDT Body Mass Index 38.11 09/02/2011 12:00 AM CDT Plan of Treatment Upcoming Encounters Date Type Department Care Team (Late st Contact Info) Description 04/09/2025 11:00 AM DIAPHRAGM BUILDER Cardiac Device Check [facility] [place] [facility] [address] [place] [id number] Health Maintenance Due Date Last Done Comments Depression screening for age 12+ 1956 BMI (ht and wt on same day) for age 18+ 1962 Pneumococcal series for age 50+ (1 of 2 - PCV) 08/24/1963 Zoster (shingles) series for age 50+ (1 of 2) 1994 Medicare Wellness for age 65+ 2009 Tetanus booster 07/13/2014 07/13/2004 RSV vaccine for adults or (1 - 1-dose 75+ series) 08/24/2019 COVID-19 vaccine series ( season) 2024 11/22/2023, 12/06/2022, 12/04/2021, Additional history exists Influenza Vaccine (#1) 2024 12/18/2004 Hepatitis B series for 19+ Aged Out N o longer eligible based on patient's age to complete this topic Insurance [facility] Member Subscriber Plan / Payer (Ef fective 2024-Present) Name:Enrique Eugene Relation to Subscriber:Self Name:Enrique Eugene Payer ID:[id number] (NAIC) Group ID:[id number] Type:Not on file Address: MAILSTOP: [id number] [address] [place] [address] [employer] Care Teams Shopper'S Aide Relationship Specialty Start Date End Date None . PCP - General 04/10/24
--- OUTSIDE RECORDS SUMMARY | 2024-12-19 14:35 | XMS_ITS | Clinical Summary ---
Author Organization [facility] Address [address] [place] [address] Care Team Providers Care Manufacturing Technology Professor Name Role Phone Needs PcpAmarjit Primary Care Provider Unav ailable Source Comments You are receiving this document as you are listed as the primary care provider,follow-up provider, or the patient has been referred to you for consultation.This is in compliance with the Medicare and[facility] EHR Incentive Program,which states Providers who transition their patient to another setting of careor provider of care or refers their patient to another provider of care shouldprovide summary care record for each transition of care or referral. [facility] Allergies Active Allergy Reactions Criticality Noted Date Comments Rsvpref3 Vac Recomb Adjuvanted Anaphylaxis High 03/01/2023 Clarithromycin 02/24/2004 Sulfa Antibiotics [facility] Comment: Sulfa Drugs Medications B ComplexIndicatio ns:Elevated ferritin level,Folic acid deficiency (HRC),Vitamin B12 deficiency (HRC),Anemia, unspecified type Take 1 Capsule by mouth daily. 90 Capsule 3 2 Active albuterol 2.5 mg/3 mL, 0.083%, (PROVENTIL) nebulizer solutionIndicati ons:Reactive airway disease with acute exacerbation, unspecified asthma severity, unspecified whether persistent (HRC) 1 Each (2.5 mg) by Nebulization route every 6 hours as needed for Wheezing. 180 mL 1 3 Active azelastine (ASTELIN) 0.1 % nasal solutionIndicati ons:Allergic rhinitis, unspecified seasonality, unspecified trigger Place 1 [place] into both nostrils two times a day. 30 mL 11 3 Active cholecalciferol (D3 SUPER STRENGTH) 50 MCG (2000 UT) capsuleIndicatio ns:Vitamin D deficiency (HRC) Take 2 Capsules (4,000 Units) by mouth daily. 180 Capsule 3 3 Active olopatadine (PATADAY) 0.2 % eye drop solution Place 1 Drop into both eyes daily. 2.5 mL 3 3 Active atorvastatin (LIPITOR) 40 MG tabletIndication s:Mild carotid artery disease (HRC),S/P coronary artery bypass graft x 5 TAKE 1 TABLET (40 MG) BY MOUTH DAILY. 90 Tablet 3 3 Active gabapentin (NEURONTIN) 300 MG capsuleIndicatio ns:Idiopathic peripheral neuropathy Take 1 Capsule (300 mg) by mouth two times a day. 180 Capsule 1 3 Active oxybutynin (DITROPAN XL) 5 MG 24 hour release tabletIndication s:OAB (overactive bladder) Take 1 Tablet (5 mg) by mouth daily. 90 Tablet 1 3 Active omeprazole (PRILOSEC) 40 MG capsuleIndicatio ns:Gastroesophag eal reflux disease with esophagitis without hemorrhage Take 1 Capsule (40 mg) by mouth daily. 90 Capsule 1 3 Active tiotropium-oloda terol (STIOLTO RESPIMAT) 2.5-2.5 MCG/ACT inhalerIndicatio ns:Moderate persistent reactive airway disease with acute exacerbation (HRC) Inhale 2 Puffs daily. 2 Each 3 3 Active dutasteride (AVODART) 0.5 MG capsuleIndicatio ns:Benign prostatic hyperplasia with weak urinary stream TAKE 1 CAPSULE (0.5 MG) BY MOUTH DAILY. 90 Capsule 3 3 Active nitroglycerin (NITROSTAT) 0.4 MG sublingual tabletIndication s:Chest discomfort,S/P coronary artery bypass graft x [address] Place 1 Tablet (0.4 mg) under tongue every 5 minutes as needed for Chest Pain. 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 180 Capsule 1 3 Active metoprolol succinate (TOPROL XL) 25 MG 24 hour release tabletIndication s:PAF (paroxysmal atrial fibrillation) (HRC),Essential hypertension (HRC) Take 1 Tablet (25 mg) by mouth daily. 90 Tablet 3 4 Active clotrimazole (LOTRIMIN) 1 % creamIndications :Candidal intertrigo Apply 1 g topically two times daily as needed (yeast groinfolds). 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 30 Tablet 4 Active E-400 180 MG (400 UNIT) CAPSIndications: Nocturnal leg cramps TAKE 1 CAPSULE (400 UNITS) BY MOUTH DAILY. 90 Capsule 3 4 Active Active Problems Problem Noted Date Diagnosed Date History of chronic respiratory failure 3 History of RSV infection 01/13/2023 Unstable angina 01/08/2023 alf (current) use of systemic steroids 12/2022 alf current use of inhaled steroid 023 Folic [...] history of CABG 08/09/2020 Overview (08/09/2020): 12/18/19 SADLER-LAD, SVG to M2 - M3, SVG to proximal PDa (RCA), SVG to D2) Benign prostatic hyperplasia with weak [...] Overview (12/29/2018): SCREENING FOR MALIGNANCY NOS Immunizations Immunization Administration Dates Next Due Flu Vac (3+ yrs) 11/28/2005,12/18/2004 Flu Vac Preserv Free (3+yrs) 12/25/2010 Influenza (Flucelvax) 12/03/2020 Influenza IIV4 (Quadrivalent ) 0.5mL (20231) 12/17/2019,04/05/2018 Influenza IIV4 (Quadrivalent ) Fluad, 65+ Yrs 12/06/2022,12/04/2021 Moderna Bivalent 12+ 12/04/2021 Moderna COVID-19 12+ (Spikevax) 12/06/2022 Moderna Monovalent 12+ 07/06/2021,2020,05/02/2020,2020 Moderna Monovalent [...] Comments Blood Pressure 120/56 03/01/2023 10:07 AM GAS PLANT SPECIALIST Pulse 71 07/01/2023 9:25 AM CDT Temperature 37.3 C (99.1 F) 03/01/2023 9:29 AM GAS PLANT SPECIALIST Respiratory Rate 21 12/13/2022 7:36 PM CDT [...] Health Maintenance Due Date Last Done Comments Pneumococcal PCV20 Immunization Discussion 1945 Medicare Annual Wellness Visit 02/29/2024 12/30/2022, 06/08/2021 (Completed) DTaP/Tdap/Td Vaccine (2 - Tdap) 09/23/2024 09/23/2014, 07/13/2004, 07/13/2004 COVID-19 Vaccine ( season) 2024 12/06/2022, 12/06/2022, 12/04/2021, Additional history exists Influenza Vaccine (#1) 2024 , 12/04/2021, 12/03/2020, Additional history exists Pneumococcal Vaccine 50+ Yrs Completed 04/05/2018, 10/13/2013, 11/28/2005 Zoster/Shingles Vaccine Completed 08/21/19 23, 01/30/2021, 12/03/2020 RSV Vaccine Completed 12/07/2022 Cholesterol Discontinued 12/30/2022, 02/28, 06/08/2021, Additional history exists Lung Cancer Screening Discontinued 04/11/2023, 023 HepA Vaccine Aged Out No longer eligi ble based on patient's age to complete this topic HepB Vaccine Aged Out No longer eligi ble based on patient's age to complete this topic Hib Vaccine Aged Out No longer eligi ble based on patient's age to complete this topic MCV4 Vaccine Aged Out No longer eligi ble based on patient's age to complete this topic Meningococcal B Vaccine Aged Out No l onger eligible based on patient's age to complete this topic Medical Devices Implanted Type Area Naval Inspector Device Identifier Shelf Expiration Date Model / Serial / Lot Pacemaker Cardiac Bypass X5 Procedures Procedure Name Priority Date/Time Associated Diagnosis Comments CT CHEST WO IV CONT LUNG SCREENING Routine 04/11/2023 1:42 PM GAS PLANT SPECIALIST Tobacco use (HRC) Nicotine dependence with nicotine-induced disorder, unspecified nicotine product type (HRC) Smoking greater than 40 pack years (HRC) LIPID PANEL & DIRECT LDL (IF NEEDED) Routine 12/30/2022 8:08 AM CDT Dyslipidemia (HRC) from Last 3 Months or Most Recently Relevant to Health Maintenance Results * CT Chest WO IV Cont Lung Screening (04/11/2023 1:42 PM GAS PLANT SPECIALIST) Anatomical Region Laterality Modality Chest, Lung Computed Tomogra phy 04/11/2023 1:25 PM GAS PLANT SPECIALIST Impressions 04/11/2023 2:11 PM GAS PLANT SPECIALIST COMPARISON: 04/09/2022 TECHNIQUE: Images through the chest [...] (non lung cancer). Clinical follow-up is recommended us Reyna Wharton MD RAD CT Final Res ult * (ABNORMAL) Lipid Panel & Direct LDL (if Needed) (12/30/2022 8:08 AM CDT) Cholesterol 126 0 - 199 mg/dL 12/30/2022 8:40 AM [facility] Triglyceride 115 <=149 mg/dL 12/30/2022 8:40 AM [facility] HDL Cholesterol 32(L) >=40 mg/dL 3 8:40 AM [facility] LDL, Calculated 71 <130 mg/dL 3 8:40 AM [facility] Non HDL Chol, Calculated 94 <=159 mg/dL 12/30/2022 8:40 AM [facility] Cholesterol/HDL Ratio 3.9 <=5.0 12/30/2022 8:40 AM [facility] Hours Fasting 10.0 8 - 12 Hours 12/30/2022 8:40 AM [facility] Blood Venipuncture / Unknown 12/30/2022 8:08 AM CDT 12/30/2022 8:13 AM T Fercho Serrato DO LAB_1 Final Result [facility] [address] [address] from Last 3 Months or Most Recently Relevant to Health Maintenance Insurance [facility] LIMITED BENEFIT [employer] MEDICARE REPLACEMENT [facility] LIMITED BENEFIT [employer] MEDICARE REPLACEMENT Advance Directives * Full Code (Latest Code [...] 1:46 PM 08/26/2021 5:07 PM Care Teams Manufacturing Technology Professor Relationship Specialty Start Date End Date Needs PcpAmarjit [address] [place] [address] PCP - General 01/06/24
[2024-12-19 14:36] LABS: Potassium* 4.2 mmol/L (3.6-5.1)
[2024-12-19 14:38] LABS: Blood Urea Nitrogen* 27 mg/dL (7-30); Creatinine* 1.2 mg/dL (0.5-1.5); Estimated Glomerular Filt Rate 61 ml/min; Troponin, Point-of-Care* 0.01 ng/ml (0.01-0.04)
[2024-12-19 14:39] LABS: Alanine Aminotransferase* 18 U/L (4-50); Alkaline Phosphatase* 81 U/L (40-150); Anion Gap 7 mEq/L (7-15); Aspartate Amino Transferase* 28 U/L (12-35); Bilirubin Total* 0.5 mg/dL (0.1-1.5); Calcium* 8.7 mg/dL (8.4-10.6); Carbon Dioxide* 28 mmol/L (20-32); Glucose* 114 mg/dL (60-115); Total Protein* 6.5 g/dL (6.0-8.3)
[2024-12-19 14:42] LABS: D Dimer Quantitative* 1.68 ug/ml (0.00-0.50)
[2024-12-19 14:56] LABS: NT Pro B Type NatriureticPept* 2150 pg/mL (See Note)
--- NOTE | 2024-12-19 15:02 | CRLHL7_ITS ---
For Patients: As a result of the Century Cures Act, medical imaging exams and procedure reports are released immediately into your electronic medical record. You may view this report before your referring provider. If you have questions, please contact your health care provider. INDICATION: Bilateral leg weakness, legs giving out TECHNIQUE: CT lumbar spine without contrast. COMPARISON: None. FINDINGS: Vertebrae: No spondylolisthesis. No acute fracture. Chronic appearing concavity of multiple superior and inferior endplates without significant vertebral body height loss. The bones appear demineralized. Discs and facet joints: There is moderate multilevel degenerative disc disease with prominent anterior osteophytes. There is [id number] multilevel facet arthropathy. Extraspinal findings: Bilateral pleural effusions, partially imaged. Atherosclerotic calcifications. Degenerative changes of the bilateral sacroiliac joints. IMPRESSION: No acute abnormality of the lumbar spine. Moderate multilevel degenerative changes. Please note that all CT scans at this facility use dose modulation, iterative reconstruction, and/or weight-based dosing when appropriate to reduce radiation dose to as low as reasonably achievable. Dictated by Haylie Fuller MD @ 12/19/2024 4:50:50 PM (Electronically Signed)
--- NOTE | 2024-12-19 15:40 | CRLHL7_ITS ---
For Patients: As a result of the Century Cures Act, medical imaging exams and procedure reports are released immediately into your electronic medical record. You may view this report before your referring provider. If you have questions, please contact your health care provider. INDICATION: Left leg swelling TECHNIQUE: Ultrasound venous duplex lower left extremity. Compression venous exam was performed using mujica-scale, color Doppler, and spectral Doppler analysis. COMPARISON: None. FINDINGS: Sonographic imaging demonstrates the left common femoral, deep femoral, superficial femoral, popliteal, posterior tibial and greater saphenous and the contralateral right common femoral veins to be fully compressible with normal color Doppler blood flow. IMPRESSION: Normal left lower extremity venous ultrasound, no sign of deep venous thrombosis. Dictated by Tj Ribera MD @ 12/19/2024 4:28:20 PM (Electronically Signed)
[2024-12-19] MEDS: FUROSEMIDE 10 MG/ML inj 20 MG IVP (16:05)
[2024-12-19 16:46] LABS: Troponin, Point-of-Care* 0.01 ng/ml (0.01-0.04)
== END 2024-12-19 17:30 | disposition home or self-care (01) ==
PROVIDERS: Emergency Provider Family Medicine; PCP Internal Medicine
DX: R07.9 Chest pain, unspecified (principal); R26.9 Unspecified abnormalities of gait and mobility; I50.9 Heart failure, unspecified
CPT/HCPCS: 36415; 71045; 72131; 73502; 73562; 80053; 82803; 83605; 83735; 83880; 84484; 85025; 85379; 86140; 93005; 93971; 94761; 96374; 99285; J1938

== ENCOUNTER 2025-02-21 11:51 | Outpatient (CLI) | payer BC, SELFPAY | END 2025-02-21 11:52 | disposition home or self-care (01) | LOC: AMB 03-05 13:04 | PROVIDERS: PCP Internal Medicine; Visit Provider Family Medicine | DX: S09.93XA Unspecified injury of face, initial encounter (principal); W01.0XXA Fall on same level from slipping, tripping and stumbling without subsequent striking against object, initial encounter; Y92.481 Parking lot as the place of occurrence of the external cause | CPT/HCPCS: A0998 ==